=== PATIENT | female | born 1950 | race Caucasian/White ===

== ENCOUNTER 2020-10-06 12:21 | Inpatient (IN) | payer BC ==
[2020-10-06] MEDS ORDERED: Ondansetron 4 MG/2 ML SDV IVPUSH ONE (12:50)
--- NOTE | 2020-10-06 12:55 | EDM.PDOC ---
ED HPI GENERAL MEDICAL PROBLEM - General Chief Complaint: General Stated Complaint: TIRED/WEAK Time Seen by Provider: 10/06/20 12:35 Source of Information: Reports: Patient, Family (son) History Limitations: Reports: No Limitations - History of Present Illness INITIAL COMMENTS - FREE TEXT/NARRATIVE: 69year-old female presents to the ED in the accompaniment of family member. S he is so weak she required assistance from her vehicle by nursing staff. She presents due to generalized weakness and inability to eat for several days. She states she has a primary right sided lung cancer that was diagnosed in 2017 treated with radiation and chemotherapy. Subsequently she has developed metastatic disease to bones and brain and likely liver. She has not been able to eat anything for the last 3 days. Nothing tastes good. Occasional bouts of nausea without vomiting. Stools are still formed and somewhat difficult to pass as they are quite hard. She estimates she is lost 45 pounds of weight in the last 3 months. She has tried immunotherapy with no improvement in symptoms. She did have recent imaging with MRI of her brain revealing tumors bilaterally. She has a scheduled appointment to see Dr. Garcia her oncologist tomorrow in [place] but was just going to simply tell him that she does not wish to pursue any active chemotherapy. She essentially needs to be placed in hospice care. She states she is so weak she cannot walk with the aid of her walker today. Onset: Gradual, Other (Primary diagnosis of right-sided lung cancer in 2017. More gradual loss of function with weight loss over the last 3 months.) Duration: Chronic Location: Reports: Chest (Primary right sided lung cancer with known metastatic disease to bone and brain and likely liver. Complete loss of appetite), Generalized (Her generalized weakness in it unable to walk even with the aid of her walker today.) Quality: Reports: Other Severity: Severe (Generalized weakness and loss of appetite) Improves with: Reports: None Worsens with: Reports: None Context: Reports: Other (Primary cancer diagnosed in 2017 in the right lung with palliative radiotherapy and chemotherapy. Subsequently has developed metastatic disease to brain which has been radiated and more recently diffuse metastatic disease to bones and liver). Denies: Activity, Exercise, Lifting, Sick Contact, Trauma Associated Symptoms: Reports: Cough, Loss of Appetite, Malaise (Rare cough rare sputum production no hemoptysis), Nausea/Vomiting, Shortness of Breath, Weakness (Neurolysed weakness to the point she is unable to walk even with the aid of her walker today. She cannot get dressed on her own.), Other (Mild constipation.). Denies: Confusion, Chest Pain, Diaphoresis, Fever/Chills, Headaches (Pleat loss of appetite. Has not eaten anything in 3 days.), Rash, Seizure (Occasional nausea but no vomiting), Syncope Treatments SENIOR SUSTAINABILITY CONSULTANT: Reports: Acetaminophen (Rare use of Tylenol) - Related Data Allergies Allergy/AdvReac Type Severity Reaction Status Date / Time No Known Allergies Allergy Verified 10/06/20 12:35 Home Meds: Home Meds Non-Formulary Medication [NF Drug] 0 each .XX ASDIRECTED 10/06/20 [History] Past Medical History HEENT History: Reports: Impaired Vision Respiratory History: Reports: SOB NURSERY MANAGER History: Reports: Endometriosis, Polycystic Ovaries Musculoskeletal History: Reports: Osteoarthritis, Other (See Below) (Back pain felt to be due to metastatic bone disease) Neurological History: Reports: Other (See Below) (Has known multiple metastatic brain lesions from primary lung cancer. No history of a seizure event) Oncologic (Cancer) History: Reports: Brain (Metastatic disease to her brain diagnosed within the last 9 months treated with radiation.), Lung (Primary cancer was diagnosed in 2017 in the right lung. She is this has been treated with radiation and chemotherapy and immunotherapy. Last treatment was 3 weeks ago), Metastatic (Imaging reveals advanced metastatic disease to brain and bone and liver.) Other Oncologic History: right lung cancer diagnosed in 2017 that has spread to brain and spine - Past Surgical History Respiratory Surgical History: Reports: Lung Biopsies GI Surgical History: Reports: Colonoscopy Social & Family History - Tobacco Use Tobacco Use Status *Q: Former Tobacco User Used Tobacco, but Quit: Yes Month/Year Tobacco Last Used: 03/1998 - Caffeine Use Caffeine Use: Reports: None - Recreational Drug Use Recreational Drug Use: No - Living Situation & Occupation Occupation: Disabled ED ROS GENERAL - Review of Systems Review Of Systems: See Below Constitutional: Reports: Malaise, Weakness, Fatigue, Decreased Appetite (Complete loss of appetite with very little to eat or drink in the last 3 days.), Weight Loss (A 5 pound weight loss in the last 3 months). Denies: Fever, Chills HEENT: Reports: Glasses Respiratory: Reports: Shortness of Breath, Wheezing, Cough (Occasional cough). Denies: Pleuritic Chest Pain (Occasional wheezing), Hemoptysis ( with rare sputum production) Cardiovascular: Reports: Blood Pressure Problem, Dyspnea on Exertion (Chronic edema both lower extremities), Edema, Lightheadedness (Often gets lightheaded dizzy when she stands from a seated or lying down position). Denies: Chest Pain, Claudication (Usually on the low side), Orthopnea, Palpitations, PND Endocrine: Reports: Fatigue GI/Abdominal: Reports: Constipation (Stools are hard and difficult to pass), Decreased Appetite, Nausea (Occasional nausea). Denies: Hematochezia, Melena : Reports: Other (Urine is dark and dereck in color.) Musculoskeletal: Reports: Neck Pain, Back Pain Skin: Reports: Bruising (Loses fairly easily.) Neurological: Reports: Dizziness, Difficulty Walking (Uses a walker but today not able to walk with even with her walker.), Weakness. Denies: Confusion, Headache, Numbness, Syncope, Tingling, Tremors, Trouble Speaking ( 2-week), Change in Speech Psychiatric: Reports: Depression (Due to chronic illness.) Hematologic/Lymphatic: Reports: Anemia Immunologic: Reports: No Symptoms ED EXAM, GENERAL - Physical Exam Exam: See Below Exam Limited By: No Limitations General Appearance: Alert, WD/WN, Mild Distress, Other (Patient is obviously quite ill. Strong smell of ketones on her breath. Temperature is 36.4 heart rate 112 and sinus at the bedside. Respiratory rate of 18 with O2 sats of 91% room air hands are slightly cool to touch. Blood pressure 107/67.) Eye Exam: Bilateral Eye: Normal Inspection (Mild blepharal pallor bilaterally no scleral icterus), PERRL Throat/Mouth: Normal Inspection, Normal Oropharynx, Other Head: Atraumatic (Tongue is dry and coated.), Normocephalic Neck: Normal Inspection, Supple, Limited Range of Motion, Tender Lateral. No: Full Range of Motion, Carotid Bruit, Lymphadenopathy (L), Lymphadenopathy (R) Respiratory/Chest: No Respiratory Distress, No Accessory Muscle Use, Decreased Breath Sounds (Decreased air entry the posterior right lung field without adventitial sounds. Question whether may be a small pleural effusion with dullness to percussion in this area.), Other (Port-A-Cath left upper anterior chest) Cardiovascular: Normal Peripheral Pulses, No Gallop (Sinus tachycardia at the bedside 112/min.), No Murmur, No Rub, Tachycardia. No: No Edema Peripheral Pulses: 1+: Posterior Tibial (L) (Called to feel pulses in her feet due to edema.), Posterior Tibial (R), Dorsalis Pedis (L), Dorsalis Pedis (R), 2+: Carotid (L), Carotid (R) GI/Abdominal: Normal Bowel Sounds, Soft, Non-Tender, No Organomegaly, No Mass, Pelvis Stable, Other (Is in the right upper quadrant of the abdomen in the distribution of the liver without obvious hepatomegaly. No surgical scars) Back Exam: Normal Inspection. No: CVA Tenderness (L), CVA Tenderness (R) Extremities: Pedal Edema (2+ pitting edema up to mid tib-fib bilaterally.), Other (No significant osteoarthritic changes in knees and hips.) Neurological: Alert, Oriented, CN II-XII Intact, Normal Cognition. No: Normal Gait (And assessed but we had to help her out of the car to get into a wheelchair to get into the ED. Normally walks with the aid of a walker but is unable to do so due to weakness.) Skin Exam: Warm, Dry, Intact, No Rash (Mild pallor), Pallor #1 Interpretation EKG Date: 10/06/20 Time: 13:02 Rhythm: Other (Sinus tachycardia) Rate (Beats/Min): 103 [place]: LAD-Left [place] Deviation (-44 degrees) P-Wave: Present QRS: Other (There is Q-wave in V1 and poor R wave progression V2 V3 consider old anteroseptal myocardial infarction. There is Q-wave in lead III and aVF compared with old inferior wall myocardial infarction. There is decreased voltage in both the limb and precordial leads.) ST-T: Other (T wave flattening in aVL nonspecific finding) QT: Normal EKG Interpretation Comments: Abnormal ECG Course - Vital Signs Last Recorded V/S: Last Vital Signs Temp 36.4 C 10/06/20 12:30 Pulse 108 H 10/06/20 12:30 Resp 18 10/06/20 12:30 BP 107/67 10/06/20 12:30 Pulse Ox 91 L 10/06/20 12:30 - Orders/Labs/Meds Orders: Active Orders 24 hr Category Date Time Status Patient Status [ADT] Routine ADT 10/06/20 13:58 Active EKG Documentation Completion [RC] STAT Care 10/06/20 12:52 Active Implanted Port Access [RC] Q12HR Care 10/06/20 12:50 Active Oxygen Therapy [RC] PRN Care 10/06/20 13:58 Active RT Aerosol Therapy [RC] ASDIRECTED Care 10/06/20 13:58 Active Up With Assistance [RC] ASDIRECTED Care 10/06/20 13:58 Active Vital Signs [RC] Q4H Care 10/06/20 13:58 Active Consult to Hospice [CONS] Routine Cons 10/06/20 13:58 Ordered Heart Healthy Diet [DIET] Diet 10/06/20 Lunch Active CORONAVIRUS COVID-19 ALEXANDRA [MOLEC] Stat Lab 10/06/20 13:55 Received SEDIMENTATION RATE AUTO [HEME] Stat Lab 10/06/20 12:55 Received URINALYSIS W/MICROSCOPIC [UA W/MICROSCOPIC] [URIN] Stat Lab 10/06/20 12:53 Ordered Acetaminophen [TylenoL] Med 10/06/20 13:58 Active 650 mg PO Q4H PRN Albuterol/Ipratropium [DuoNeb 3.0-0.5 MG/3 ML] Med 10/06/20 13:58 Active 3 ml NEB Q4H PRN Docusate Sodium [Colace] Med 10/06/20 13:58 Active 100 mg PO BID PRN Enoxaparin [Lovenox] Med 10/07/20 09:00 Active 40 mg SUBCUT DAILY Lactated Ringers [Ringers, Lactated] 1,000 ml Med 10/06/20 14:00 Active IV ASDIRECTED Ondansetron [Zofran ODT] Med 10/06/20 13:58 Active 4 mg PO Q4H PRN Temazepam [Restoril] Med 10/06/20 21:00 Active 15 mg PO BEDTIME PRN oxyCODONE Med 10/06/20 13:58 Active 5 mg PO Q4H PRN Resuscitation Status Routine Resus Stat 10/06/20 13:58 Ordered Medication Orders Acetaminophen (Acetaminophen 325 Mg Tab) 650 mg PO Q4H PRN PRN Reason: Pain (Mild 1-3)/fever Albuterol/Ipratropium (Albuterol/Ipratropium 3.0-0.5 Mg/3 Ml Neb Soln) 3 ml NEB Q4H PRN PRN Reason: Shortness Of Breath/wheezing Docusate Sodium (Docusate Sodium 100 Mg Cap) 100 mg PO BID PRN PRN Reason: Constipation Enoxaparin Sodium (Enoxaparin 40 Mg/0.4 Ml Syringe) 40 mg SUBCUT DAILY HERLINDA Lactated Ringer's (Ringers, Lactated) 1,000 mls @ 100 mls/hr IV ASDIRECTED HERLINDA Ondansetron HCl (Ondansetron 4 Mg Tab.Dis) 4 mg PO Q4H PRN PRN Reason: nausea, able to take PO Oxycodone HCl (Oxycodone 5 Mg Tab) 5 mg PO Q4H PRN PRN Reason: Pain (moderate 4-6) Temazepam (Temazepam 15 Mg Cap) 15 mg PO BEDTIME PRN PRN Reason: Sleep Labs: Laboratory Tests 10/06/20 10/06/20 10/06/20 Range/Units 12:55 12:55 12:55 WBC 11.60 H (3.98-10.04) K/mm3 RBC 3.73 L (3.98-5.22) M/mm3 Hgb 11.9 (11.2-15.7) gm/dl Hct 37.6 (34.1-44.9) % MCV 100.8 H (79.4-94.8) fl MCH 31.9 (25.6-32.2) pg MCHC 31.6 L (32.2-35.5) g/dl RDW Std Deviation 64.2 H (36.4-46.3) fL Plt Count 239 (182-369) K/mm3 MPV 10.2 (9.4-12.3) fl Neut % (Auto) 70.7 (34.0-71.1) % Lymph % (Auto) 23.8 (19.3-51.7) % [place] % (Auto) 4.9 (4.7-12.5) % Eos % (Auto) 0 L (0.7-5.8) Baso % (Auto) 0.3 (0.1-1.2) % Neut # (Auto) 8.20 H (1.56-6.13) K/mm3 Lymph # (Auto) 2.76 (1.18-3.74) K/mm3 [place] # (Auto) 0.57 H (0.24-0.36) K/mm3 Eos # (Auto) 0.00 L (0.04-0.36) K/mm3 Baso # (Auto) 0.04 (0.01-0.08) K/mm3 PT 16.0 H (9.7-12.0) SECONDS INR 1.51 APTT 32.0 H (21.7-31.4) SECONDS Sodium 141 (136-145) mEq/L Potassium 3.6 (3.5-5.1) mEq/L Chloride 103 (98-107) mEq/L Carbon Dioxide 22 (21-32) mEq/L Anion Gap 19.6 H (5-15) BUN 12 (7-18) mg/dL Creatinine 0.6 (0.55-1.02) mg/dL Est Cr Clr Drug Dosing 80.75 mL/min Estimated GFR (MDRD) > 60 (>60) mL/min BUN/Creatinine Ratio 20.0 H (14-18) Glucose 87 (70-99) mg/dL Lactic Acid (0.4-2.0) mmol/L Calcium 8.4 L (8.5-10.1) mg/dL Magnesium 1.7 L (1.8-2.4) mg/dL Total Bilirubin 0.7 (0.2-1.0) mg/dL GGT 41 (5-55) U/L AST 21 (15-37) U/L ALT 12 L (14-59) U/L Alkaline Phosphatase 103 (46-116) U/L Troponin I (0.00-0.056) ng/mL C-Reactive Protein 0.6 (<1.0) mg/dL NT-Pro-B Natriuret Pep (0-125) pg/mL Total Protein 5.5 L (6.4-8.2) g/dl Albumin 2.3 L (3.4-5.0) g/dl Globulin 3.2 gm/dL Albumin/Globulin Ratio 0.7 L (1-2) Lipase 79 (73-393) U/L Ketones (0.0-0.3) mM 10/06/20 10/06/20 10/06/20 Range/Units 12:55 12:55 12:55 WBC (3.98-10.04) K/mm3 RBC (3.98-5.22) M/mm3 Hgb (11.2-15.7) gm/dl Hct (34.1-44.9) % MCV (79.4-94.8) fl MCH (25.6-32.2) pg MCHC (32.2-35.5) g/dl RDW Std Deviation (36.4-46.3) fL Plt Count (182-369) K/mm3 MPV (9.4-12.3) fl Neut % (Auto) (34.0-71.1) % Lymph % (Auto) (19.3-51.7) % [place] % (Auto) (4.7-12.5) % Eos % (Auto) (0.7-5.8) Baso % (Auto) (0.1-1.2) % Neut # (Auto) (1.56-6.13) K/mm3 Lymph # (Auto) (1.18-3.74) K/mm3 [place] # (Auto) (0.24-0.36) K/mm3 Eos # (Auto) (0.04-0.36) K/mm3 Baso # (Auto) (0.01-0.08) K/mm3 PT (9.7-12.0) SECONDS INR APTT (21.7-31.4) SECONDS Sodium (136-145) mEq/L Potassium (3.5-5.1) mEq/L Chloride (98-107) mEq/L Carbon Dioxide (21-32) mEq/L Anion Gap (5-15) BUN (7-18) mg/dL Creatinine (0.55-1.02) mg/dL Est Cr Clr Drug Dosing mL/min Estimated GFR (MDRD) (>60) mL/min BUN/Creatinine Ratio (14-18) Glucose (70-99) mg/dL Lactic Acid 0.8 (0.4-2.0) mmol/L Calcium (8.5-10.1) mg/dL Magnesium (1.8-2.4) mg/dL Total Bilirubin (0.2-1.0) mg/dL GGT (5-55) U/L AST (15-37) U/L ALT (14-59) U/L Alkaline Phosphatase (46-116) U/L Troponin I (0.00-0.056) ng/mL C-Reactive Protein (<1.0) mg/dL NT-Pro-B Natriuret Pep 117 (0-125) pg/mL Total Protein (6.4-8.2) g/dl Albumin (3.4-5.0) g/dl Globulin gm/dL Albumin/Globulin Ratio (1-2) Lipase (73-393) U/L Ketones 5.5 (0.0-0.3) mM // Range/Units 12:55 WBC (3.98-10.04) K/mm3 RBC (3.98-5.22) M/mm3 Hgb (11.2-15.7) gm/dl Hct (34.1-44.9) % MCV (79.4-94.8) fl MCH (25.6-32.2) pg MCHC (32.2-35.5) g/dl RDW Std Deviation (36.4-46.3) fL Plt Count (182-369) K/mm3 MPV (9.4-12.3) fl Neut % (Auto) (34.0-71.1) % Lymph % (Auto) (19.3-51.7) % [place] % (Auto) (4.7-12.5) % Eos % (Auto) (0.7-5.8) Baso % (Auto) (0.1-1.2) % Neut # (Auto) (1.56-6.13) K/mm3 Lymph # (Auto) (1.18-3.74) K/mm3 [place] # (Auto) (0.24-0.36) K/mm3 Eos # (Auto) (0.04-0.36) K/mm3 Baso # (Auto) (0.01-0.08) K/mm3 PT (9.7-12.0) SECONDS INR APTT (21.7-31.4) SECONDS Sodium (136-145) mEq/L Potassium (3.5-5.1) mEq/L Chloride (98-107) mEq/L Carbon Dioxide (21-32) mEq/L Anion Gap (5-15) BUN (7-18) mg/dL Creatinine (0.55-1.02) mg/dL Est Cr Clr Drug Dosing mL/min Estimated GFR (MDRD) (>60) mL/min BUN/Creatinine Ratio (14-18) Glucose (70-99) mg/dL Lactic Acid (0.4-2.0) mmol/L Calcium (8.5-10.1) mg/dL Magnesium (1.8-2.4) mg/dL Total Bilirubin (0.2-1.0) mg/dL GGT (5-55) U/L AST (15-37) U/L ALT (14-59) U/L Alkaline Phosphatase (46-116) U/L Troponin I < 0.017 (0.00-0.056) ng/mL C-Reactive Protein (<1.0) mg/dL NT-Pro-B Natriuret Pep (0-125) pg/mL Total Protein (6.4-8.2) g/dl Albumin (3.4-5.0) g/dl Globulin gm/dL Albumin/Globulin Ratio (1-2) Lipase (73-393) U/L Ketones (0.0-0.3) mM Meds: Medications Generic Name Dose Route Start Last Admin Trade Name Freq PRN Reason Stop Dose Admin Acetaminophen 650 mg 10/06/20 13:58 Acetaminophen 325 Mg Tab PO Q4H PRN Pain (Mild 1-3)/fever Albuterol/Ipratropium 3 ml 10/06/20 13:58 Albuterol/Ipratropium 3.0-0.5 Mg/3 Ml Neb Soln NEB Q4H PRN Shortness Of Breath/wheezing Docusate Sodium 100 mg 10/06/20 13:58 Docusate Sodium 100 Mg Cap PO BID PRN Constipation Enoxaparin Sodium 40 mg 10/07/20 09:00 Enoxaparin 40 Mg/0.4 Ml Syringe SUBCUT DAILY [facility] Lactated Ringer's 1,000 mls @ 100 mls/hr 10/06/20 14:00 Ringers, Lactated IV ASDIRECTED HERLINDA Ondansetron HCl 4 mg 10/06/20 13:58 Ondansetron 4 Mg Tab.Dis PO Q4H PRN nausea, able to take PO Oxycodone HCl 5 mg 10/06/20 13:58 Oxycodone 5 Mg Tab PO Q4H PRN Pain (moderate 4-6) Temazepam 15 mg 10/06/20 21:00 Temazepam 15 Mg Cap PO BEDTIME PRN Sleep Discontinued Medications Generic Name Dose Route Start Last Admin Trade Name Freq PRN Reason Stop Dose Admin Dextrose/Sodium Chloride 1,000 mls @ 999 mls/hr 10/06/20 13:00 10/06/20 13:17 Dextrose 5%-Normal Saline IV 999 mls/hr ASDIRECTED HERLINDA Administration Ondansetron HCl 4 mg 10/06/20 12:50 10/06/20 13:17 Ondansetron 4 Mg/2 Ml Sdv IVPUSH 10/06/20 12:51 4 mg ONETIME ONE Administration - Radiology Interpretation Free Text/Narrative:: 69-year-old female presents to the ED requiring assist from her vehicle by nursing staff and her son. She has a primary history of lung cancer on the right side diagnosed in 2017 treated with radiation and chemotherapy. Did okay for period of time but recently identified to have metastatic disease to her brain treated with radiotherapy and now diffuse bony metastatic disease indicating chemotherapy failure and immunotherapy failure. She is also had primary radiation to her right lung. She states nothing tastes good unable to eat or drink hardly anything in the last 3 days. Reports a 45 pound weight loss in the last 3 months. Usually can get along walking with her walker but has been unable to do so for the last few days. She states she is so weak she cannot dress herself. On exam breath smells strongly of ketones. She is alert oriented and answers all questions appropriately. Exam reveals mildly decreased air entry at posterior right lung field. Mild dependent edema bilaterally. Plan routine labs including lactic acid and serum ketones to be obtained. She is clinically volume depleted. IV will be D5 normal saline at open. She does have a Port-A-Cath upper anterior left chest. It appears that she will require admission to the hospital. She will have to consider hospice/palliative care. - Re-Assessments/Exams Free Text/Narrative Re-Assessment/Exam: 10/06/20 13:20 ECG is suggestive of an old anteroseptal and inferior wall myocardial infarction. For this reason a serum troponin will be ordered. 10/06/20 13:45 chest x-ray done portably reveals patchy increased density within the right lung base. Questionable pleural effusion is seen with blunting of the right costophrenic angle. Lungs otherwise are grossly clear. Heart size and mediastinum are normal. Degenerative change appears to be present within the left shoulder. Left-sided infusion port is seen. Scoliosis of the thoracic spine noted. 10/06/20 13:47 White count is mildly elevated at 11.60. The differential r eveals 71% neutrophils on the auto differential. Hemoglobin is slightly low at 11.9 with hematocrit of 37.6. MCV is 100.8. Platelet count is normal at 239,000. Serum sodium is 141 with a potassium of 3.6. Chloride 103 with a bicarb of 22. Anion gap is elevated at 19.6. BUN is 12 with a creatinine of 0.6 and a GFR greater than 60. Glucose is 87. Calcium is 8.4. Magnesium slightly low at 1.7. Total bilirubin is 0.7. GGT is 41. Transaminases are normal as is the alkaline phosphatase. C-reactive protein is 0.6. BNP is 117. Total protein slightly low at 5.5 with a low albumin fraction of 2.3. Serum lipase is normal at 79. I have discussed the case with on-call hospitalist Dr. Praful Everett and he will see the patient in the emergency room. 10/06/20 14:16 PT is 16.0 with an INR elevated at 1.51. PTT is pending. This indicates that she is auto anticoagulated likely due to metastatic disease to her liver. Serum ketones are not yet available 10/06/20 14:55 Lactic acid is 0.8. Serum ketones are markedly elevated at 5.5. C-reactive protein is 0.6. Patient will be started on second liter of IV replacement therapy IV Ringer's lactate Departure - Departure Time of Disposition: 14:55 Disposition: Admitted As Inpatient 67 Condition: Poor Clinical Impression: Primary cancer of right lung metastatic to other site, Metabolic acidosis, Ketosis, Adult failure to thrive syndrome, Metastatic cancer to bone, Metastatic cancer to brain, Metastatic cancer to liver, Chronic pain due to malignant neoplastic disease, Dehydration - Discharge Information *PRESCRIPTION DRUG MONITORING PROGRAM REVIEWED*: Not Applicable *COPY OF PRESCRIPTION DRUG MONITORING REPORT IN PATIENT ILIANA: Not Applicable Referrals: Laureano Mace MD [Primary Care Provider] - Forms: ED Department Discharge Sepsis Event Note (ED) - Evaluation Sepsis Screening Result: No Definite Risk - Focused Exam Vital Signs: Vital Signs Temp Pulse Resp BP Pulse Ox 10/06/20 12:30 36.4 C 108 H 18 107/67 91 L - My Orders Last 24 Hours: My Active Orders 10/06/20 12:50 Implanted Port Access [RC] Q12HR 10/06/20 12:52 EKG Documentation Completion [RC] STAT 10/06/20 12:53 URINALYSIS W/MICROSCOPIC [UA W/MICROSCOPIC] [URIN] Stat 10/06/20 12:55 SEDIMENTATION RATE AUTO [HEME] Stat 10/06/20 13:55 CORONAVIRUS COVID-19 ALEXANDRA [MOLEC] Stat - Assessment/Plan Last 24 Hours: My Active Orders 10/06/20 12:50 Implanted Port Access [RC] Q12HR 10/06/20 12:52 EKG Documentation Completion [RC] STAT 10/06/20 12:53 URINALYSIS W/MICROSCOPIC [UA W/MICROSCOPIC] [URIN] Stat 10/06/20 12:55 SEDIMENTATION RATE AUTO [HEME] Stat 10/06/20 13:55 CORONAVIRUS COVID-19 ALEXANDRA [MOLEC] Stat
[2020-10-06] MEDS ORDERED: Dextrose 5%-0.9% NaCl 1,000 ML IV SCH (13:00)
--- NOTE | 2020-10-06 13:41 | CR ---
Chest: Portable view of the chest was obtained. Comparison: No previous study is available. Patchy increased density within the right lung base is seen. Questionable pleural effusion is seen with blunting of the right lateral costophrenic angle. Lungs otherwise are grossly clear. Heart size and mediastinum are normal. Degenerative change appears to be present within the left shoulder. Left-sided infusion port is seen. Scoliosis is noted within the spine. Impression: 1. Findings within the right base. Uncertain if this represents changes from previous carcinoma or whether the findings could represent an area of pneumonia with pleural effusion. 2. Other findings as noted above which appear to be chronic. Diagnostic code #3
[2020-10-06] MEDS ORDERED: Albuterol/Ipratropium 3.0-0.5 MG/3 ML Neb Soln NEB PRN (13:58)
[2020-10-06] MEDS ORDERED: oxyCODONE 5 MG Tab PO PRN (13:58)
[2020-10-06] MEDS ORDERED: Acetaminophen 325 MG Tab PO PRN (13:58)
[2020-10-06] MEDS ORDERED: Ondansetron 4 MG Tab.DIS PO PRN (13:58)
[2020-10-06] MEDS ORDERED: Docusate Sodium 100 MG Cap PO PRN (13:58)
--- NOTE | 2020-10-06 14:07 | PCM.HP.2 ---
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 The patient is not continuing chemotherapy Source of Information: Patient, Family History Limitations: Reports: No Limitations - History of Present Illness Initial Comments - Free Text/Narative: The patient is a 69-year-old lady who had presented to the emergency department essentially unable to care for herself. She has not eaten or drank anything in 3 days. She does have an underlying history of lung cancer that has metastasized to her brain, spine and liver. The patient has reported that nothing tastes good for her. The patient has a chemotherapy appointment tomorrow that she canceled as she does not want any further chemotherapy or radiation treatment. The patient also says that she has been too weak to use her walker at home. Reportedly the patient's brain tumors have grown. The patient has stopped taking all of her medications. The patient reports that she has mild back pain Onset of Symptoms: Reports: Gradual Location: Reports: Back Quality: Reports: Ache Severity: Mild Improves with: Reports: None Worsens with: Reports: None Context: Reports: Other (Poor oral intake of food and fluids) Associated Symptoms: Reports: Loss of Appetite - Related Data Allergies/Adverse Reactions: Allergies Allergy/AdvReac Type Severity Reaction Status Date / Time No Known Allergies Allergy Verified 10/06/20 12:35 Home Medications: Home Meds Non-Formulary Medication [NF Drug] 0 each .XX ASDIRECTED 10/06/20 [History] Past Medical History HEENT History: Reports: Impaired Vision Cardiovascular History: Reports: None Respiratory History: Reports: SOB Gastrointestinal History: Reports: None 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 No history of a seizure event) Endocrine/Metabolic History: Reports: None Hematologic History: Reports: None Immunologic History: Reports: None Oncologic (Cancer) History: Reports: Brain (Metastatic disease to her brain diagnosed within the last 9 months treated with radiation.), Liver, Lung (Primary cancer was diagnosed in 2017 in the right lung. She is this has been treated with radiation and chemotherapy and immunotherapy. Last treatment was 3 weeks ago), Metastatic (Imaging reveals advanced metastatic disease to brain and bone and liver.) Other Oncologic History: right lung cancer diagnosed in 2017 that has spread to brain and spine - Past Surgical History Respiratory Surgical History: Reports: Lung Biopsies GI Surgical History: Reports: Colonoscopy Social & Family History - Tobacco Use Tobacco Use Status *Q: Former Tobacco User Used Tobacco, but Quit: Yes Month/Year Tobacco Last Used: 03/1998 - Caffeine Use Caffeine Use: Reports: None - Recreational Drug Use Recreational Drug Use: No - Living Situation & Occupation Living situation: Reports: , with Spouse Occupation: Disabled H&P Review of Systems - Review of Systems: Review Of Systems: See Below General: Reports: Weakness, Fatigue, Decreased Appetite, Weight Loss HEENT: Reports: Other (Dryness) Pulmonary: Reports: Shortness of Breath Cardiovascular: Reports: No Symptoms Gastrointestinal: Reports: Anorexia Genitourinary: Reports: No Symptoms Musculoskeletal: Reports: Back Pain (Metastatic cancer to the spine) Skin: Reports: Dryness Psychiatric: Reports: No Symptoms Neurological: Reports: No Symptoms Hematologic/Lymphatic: Reports: No Symptoms Immunologic: Reports: No Symptoms Exam - Exam Exam: See Below - Vital Signs Vital Signs: Last Vital Signs Temp 36.4 C 10/06/20 12:30 Pulse 108 H 10/06/20 12:30 Resp 18 10/06/20 12:30 BP 107/67 10/06/20 12:30 Pulse Ox 91 L 10/06/20 12:30 Weight: 69.853 kg - Exam Quality Assessment: No: Supplemental Oxygen, DVT Prophylaxis General: Alert, Oriented, Cooperative HEENT: Conjunctiva Clear, EACs Clear, PERRLA. No: Mucosa Moist & [place] (Very dry, poor dentition) Neck: Supple, Trachea Midline. No: Lymphadenopathy Lungs: Decreased Breath Sounds, Rales (Widely scattered) Cardiovascular: Regular Rate, Regular Rhythm, Normal S1, Normal S2 GI/Abdominal Exam: Normal Bowel Sounds, Soft, Non-Tender, No Distention (Female) Exam: Deferred Rectal (Female) Exam: Deferred Back Exam: Normal Inspection, Full Range of Motion Extremities: Normal Inspection, Normal Range of Motion, Pedal Edema (+1) Skin: Warm, Dry, Intact Neurological: Cranial Nerves Intact, Normal Speech Psychiatric: Alert, Normal Affect, Normal Mood - Patient Data Lab Results Last 24 hrs: Laboratory Results - last 24 hr 10/06/20 10/06/20 10/06/20 Range/Units 12:55 12:55 12:55 WBC 11.60 H (3.98-10.04) K/mm3 RBC 3.73 L (3.98-5.22) M/mm3 Hgb 11.9 (11.2-15.7) gm/dl Hct 37.6 (34.1-44.9) % MCV 100.8 H (79.4-94.8) fl MCH 31.9 (25.6-32.2) pg MCHC 31.6 L (32.2-35.5) g/dl RDW Std Deviation 64.2 H (36.4-46.3) fL Plt Count 239 (182-369) K/mm3 MPV 10.2 (9.4-12.3) fl Neut % (Auto) 70.7 (34.0-71.1) % Lymph % (Auto) 23.8 (19.3-51.7) % [place] % (Auto) 4.9 (4.7-12.5) % Eos % (Auto) 0 L (0.7-5.8) Baso % (Auto) 0.3 (0.1-1.2) % Neut # (Auto) 8.20 H (1.56-6.13) K/mm3 Lymph # (Auto) 2.76 (1.18-3.74) K/mm3 [place] # (Auto) 0.57 H (0.24-0.36) K/mm3 Eos # (Auto) 0.00 L (0.04-0.36) K/mm3 Baso # (Auto) 0.04 (0.01-0.08) K/mm3 PT 16.0 H (9.7-12.0) SECONDS INR 1.51 Sodium 141 (136-145) mEq/L Potassium 3.6 (3.5-5.1) mEq/L Chloride 103 (98-107) mEq/L Carbon Dioxide 22 (21-32) mEq/L Anion Gap 19.6 H (5-15) BUN 12 (7-18) mg/dL Creatinine 0.6 (0.55-1.02) mg/dL Est Cr Clr Drug Dosing 80.75 mL/min Estimated GFR (MDRD) > 60 (>60) mL/min BUN/Creatinine Ratio 20.0 H (14-18) Glucose 87 (70-99) mg/dL Calcium 8.4 L (8.5-10.1) mg/dL Magnesium 1.7 L (1.8-2.4) mg/dL Total Bilirubin 0.7 (0.2-1.0) mg/dL GGT 41 (5-55) U/L AST 21 (15-37) U/L ALT 12 L (14-59) U/L Alkaline Phosphatase 103 (46-116) U/L C-Reactive Protein 0.6 (<1.0) mg/dL NT-Pro-B Natriuret Pep (0-125) pg/mL Total Protein 5.5 L (6.4-8.2) g/dl Albumin 2.3 L (3.4-5.0) g/dl Globulin 3.2 gm/dL Albumin/Globulin Ratio 0.7 L (1-2) Lipase 79 (73-393) U/L 10/06/20 Range/Units 12:55 WBC (3.98-10.04) K/mm3 RBC (3.98-5.22) M/mm3 Hgb (11.2-15.7) gm/dl Hct (34.1-44.9) % MCV (79.4-94.8) fl MCH (25.6-32.2) pg MCHC (32.2-35.5) g/dl RDW Std Deviation (36.4-46.3) fL Plt Count (182-369) K/mm3 MPV (9.4-12.3) fl Neut % (Auto) (34.0-71.1) % Lymph % (Auto) (19.3-51.7) % [place] % (Auto) (4.7-12.5) % Eos % (Auto) (0.7-5.8) Baso % (Auto) (0.1-1.2) % Neut # (Auto) (1.56-6.13) K/mm3 Lymph # (Auto) (1.18-3.74) K/mm3 [place] # (Auto) (0.24-0.36) K/mm3 Eos # (Auto) (0.04-0.36) K/mm3 Baso # (Auto) (0.01-0.08) K/mm3 PT (9.7-12.0) SECONDS INR Sodium (136-145) mEq/L Potassium (3.5-5.1) mEq/L Chloride (98-107) mEq/L Carbon Dioxide (21-32) mEq/L Anion Gap (5-15) BUN (7-18) mg/dL Creatinine (0.55-1.02) mg/dL Est Cr Clr Drug Dosing mL/min Estimated GFR (MDRD) (>60) mL/min BUN/Creatinine Ratio (14-18) Glucose (70-99) mg/dL Calcium (8.5-10.1) mg/dL Magnesium (1.8-2.4) mg/dL Total Bilirubin (0.2-1.0) mg/dL GGT (5-55) U/L AST (15-37) U/L ALT (14-59) U/L Alkaline Phosphatase (46-116) U/L C-Reactive Protein (<1.0) mg/dL NT-Pro-B Natriuret Pep 117 (0-125) pg/mL Total Protein (6.4-8.2) g/dl Albumin (3.4-5.0) g/dl Globulin gm/dL Albumin/Globulin Ratio (1-2) Lipase (73-393) U/L Result Diagrams: 10/06/20 12:55 10/06/20 12:55 Sepsis Event Note - Evaluation Sepsis Screening Result: No Definite Risk - Focused Exam Vital Signs: Vital Signs Temp Pulse Resp BP Pulse Ox 10/06/20 12:30 36.4 C 108 H 18 107/67 91 L - Problem List (1) Adult failure to thrive syndrome SNOMED Code(s): 486090572 ICD Code: R62.7 - ADULT FAILURE TO THRIVE Status: Acute Priority: High Current Visit: Yes (2) Metastatic cancer to bone Status: Chronic Priority: High Current Visit: Yes (3) Metastatic cancer to brain Status: Chronic Priority: High Current Visit: Yes (4) Metastatic cancer to liver Status: Chronic Priority: High Current Visit: Yes (5) Chronic pain due to malignant neoplastic disease SNOMED Code(s): 792102870 ICD Code: G89.3 - NEOPLASM RELATED PAIN (ACUTE) (CHRONIC) Status: Acute Priority: High Current Visit: Yes (6) Dehydration SNOMED Code(s): 14400907 ICD Code: E86.0 - DEHYDRATION Status: Acute Priority: High Current Visit: Yes (7) Anorexia SNOMED Code(s): 49246314 ICD Code: R63.0 - ANOREXIA Status: Acute Priority: High Current Visit: Yes Problem List Initiated/Reviewed/Updated: Yes Orders Last 24hrs: Active Orders 24 hr Category Date Time Status Patient Status [ADT] Routine ADT 10/06/20 13:58 Ordered EKG Documentation Completion [RC] STAT Care 10/06/20 12:52 Active Implanted Port Access [RC] Q12HR Care 10/06/20 12:50 Active Oxygen Therapy [RC] PRN Care 10/06/20 13:58 Ordered RT Aerosol Therapy [RC] ASDIRECTED Care 10/06/20 13:58 Ordered Up With Assistance [RC] ASDIRECTED Care 10/06/20 13:58 Ordered Vital Signs [RC] Q4H Care 10/06/20 13:58 Ordered Consult to Hospice [CONS] Routine Cons 10/06/20 13:58 Ordered Heart Healthy Diet [DIET] Diet 10/06/20 Lunch Ordered INR,PT,PROTHROMBIN TIME [COAG] Stat Lab 10/06/20 12:55 Results KETONES,BLOOD [CHEM] Stat Lab 10/06/20 12:55 Received LACTIC ACID [CHEM] Stat Lab 10/06/20 12:55 Received PTT,PARTIAL THROMBOPLSTIN TIME [COAG] Stat Lab 10/06/20 12:55 Results SEDIMENTATION RATE AUTO [HEME] Stat Lab 10/06/20 12:55 Received TROPONIN I [CHEM] Stat Lab 10/06/20 13:20 Ordered URINALYSIS W/MICROSCOPIC [UA W/MICROSCOPIC] [URIN] Stat Lab 10/06/20 12:53 Ordered Acetaminophen [TylenoL] Med 10/06/20 13:58 Ordered 650 mg PO Q4H PRN Albuterol/Ipratropium [DuoNeb 3.0-0.5 MG/3 ML] Med 10/06/20 13:58 Ordered 3 ml NEB Q4H PRN Dextrose 5%-0.9% NaCl [Dextrose 5%-Normal Saline] 1,000 Med 10/06/20 13:00 Active ml IV ASDIRECTED Docusate Sodium [Colace] Med 10/06/20 13:58 Ordered 100 mg PO BID PRN Enoxaparin [Lovenox] Med 10/07/20 09:00 Ordered 40 mg SUBCUT DAILY Lactated Ringers @ 100 MLS/HR(1000ml Bag) Med 10/06/20 14:00 Ordered Lactated Ringers [Ringers, Lactated] 1,000 ml IV ASDIRECTED Ondansetron [Zofran ODT] Med 10/06/20 13:58 Ordered 4 mg PO Q4H PRN Temazepam [Restoril] Med 10/06/20 13:58 Ordered 15 mg PO BEDTIME PRN oxyCODONE Med 10/06/20 13:58 Ordered 5 mg PO Q4H PRN Resuscitation Status Routine Resus Stat 10/06/20 13:58 Ordered Medication Orders Dextrose/Sodium Chloride (Dextrose 5%-Normal Saline) 1,000 mls @ 999 mls/hr IV ASDIRECTED HERLINDA Last Admin: 10/06/20 13:17 Dose: 999 mls/hr Documented by: RENUKA Assessment/Plan Comment:: The patient is a 69-year-old lady who has been admitted to inpatient under DO NOT INTUBATE/DO NOT RESUSCITATE comfort measures only category. She has since really has end-stage cancer. The patient will be rehydrated as she is hypovolemic. The patient will be fluid resuscitated with the use of Ringer's lactate at 100 mL/h. The patient's pain will be controlled with the use of narcotic pain medications as necessary. I have also ordered Ativan to help with anxiety. No further testing will be ordered. Hospice has been consulted. I also had a long discussion with the patient and the patient's regarding hospice and palliative care. Overall the patient's prognosis is poor. - Mortality Measure Prognosis:: Poor
[2020-10-06] MEDS ORDERED: Dextrose 5%-Lactated Ringers 1,000 ML IV SCH (15:00)
[2020-10-06] MEDS: Lactated Ringers 1,000 ML IV SCH (15:28)
[2020-10-06] MEDS ORDERED: Temazepam 15 MG Cap PO PRN (21:00)
[2020-10-07] MEDS: Lactated Ringers 1,000 ML IV SCH ×3 (01:23→20:30)
--- NOTE | 2020-10-07 07:04 | PCM.PN ---
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 The patient is not continuing chemotherapy Subjective Update: The patient is a 69-year-old lady who was admitted yesterday secondary to dehydration and fatigue and weakness associated with chemotherapy. She has history of lung cancer which is metastatic to the bones, brain and liver. The patient says that she is doing better today. She has been trying to eat some. Her pain is being controlled. Functional Status: Reports: Pain Controlled. Denies: Tolerating Diet - Review of Systems General: Reports: Weakness, Fatigue, Malaise HEENT: Reports: No Symptoms Pulmonary: Reports: No Symptoms Cardiovascular: Reports: No Symptoms Gastrointestinal: Reports: No Symptoms Genitourinary: Reports: No Symptoms Musculoskeletal: Reports: No Symptoms Skin: Reports: No Symptoms Neurological: Reports: No Symptoms Psychiatric: Reports: No Symptoms - Patient Data Vitals - Most Recent: Last Vital Signs Temp 36.4 C 10/07/20 06:04 Pulse 92 10/07/20 06:04 Resp 16 10/07/20 06:04 BP 109/69 10/07/20 06:04 Pulse Ox 94 L 10/07/20 06:04 Weight - Most Recent: 69.944 kg I&O - Last 24 Hours: Intake & Output 10/06/20 10/07/20 10/07/20 22:59 06:59 14:59 Intake Total 1652 Balance 1652 Lab Results Last 24 Hours: Laboratory Results - last 24 hr 10/06/20 10/06/20 10/06/20 Range/Units 12:55 12:55 12:55 WBC 11.60 H (3.98-10.04) K/mm3 RBC 3.73 L (3.98-5.22) M/mm3 Hgb 11.9 (11.2-15.7) gm/dl Hct 37.6 (34.1-44.9) % MCV 100.8 H (79.4-94.8) fl MCH 31.9 (25.6-32.2) pg MCHC 31.6 L (32.2-35.5) g/dl RDW Std Deviation 64.2 H (36.4-46.3) fL Plt Count 239 (182-369) K/mm3 MPV 10.2 (9.4-12.3) fl Neut % (Auto) 70.7 (34.0-71.1) % Lymph % (Auto) 23.8 (19.3-51.7) % [place] % (Auto) 4.9 (4.7-12.5) % Eos % (Auto) 0 L (0.7-5.8) Baso % (Auto) 0.3 (0.1-1.2) % Neut # (Auto) 8.20 H (1.56-6.13) K/mm3 Lymph # (Auto) 2.76 (1.18-3.74) K/mm3 [place] # (Auto) 0.57 H (0.24-0.36) K/mm3 Eos # (Auto) 0.00 L (0.04-0.36) K/mm3 Baso # (Auto) 0.04 (0.01-0.08) K/mm3 ESR (0-20) mm/hr PT 16.0 H (9.7-12.0) SECONDS INR 1.51 APTT 32.0 H (21.7-31.4) SECONDS Sodium 141 (136-145) mEq/L Potassium 3.6 (3.5-5.1) mEq/L Chloride 103 (98-107) mEq/L Carbon Dioxide 22 (21-32) mEq/L Anion Gap 19.6 H (5-15) BUN 12 (7-18) mg/dL Creatinine 0.6 (0.55-1.02) mg/dL Est Cr Clr Drug Dosing 80.75 mL/min Estimated GFR (MDRD) > 60 (>60) mL/min BUN/Creatinine Ratio 20.0 H (14-18) Glucose 87 (70-99) mg/dL Lactic Acid (0.4-2.0) mmol/L Calcium 8.4 L (8.5-10.1) mg/dL Magnesium 1.7 L (1.8-2.4) mg/dL Total Bilirubin 0.7 (0.2-1.0) mg/dL GGT 41 (5-55) U/L AST 21 (15-37) U/L ALT 12 L (14-59) U/L Alkaline Phosphatase 103 (46-116) U/L Troponin I (0.00-0.056) ng/mL C-Reactive Protein 0.6 (<1.0) mg/dL NT-Pro-B Natriuret Pep (0-125) pg/mL Total Protein 5.5 L (6.4-8.2) g/dl Albumin 2.3 L (3.4-5.0) g/dl Globulin 3.2 gm/dL Albumin/Globulin Ratio 0.7 L (1-2) Lipase 79 (73-393) U/L Urine Color (Yellow) Urine Appearance (Clear) Urine pH (5.0-8.0) Ur Specific Martha (1.005-1.030) Urine Protein (Negative) Urine Glucose (UA) (Negative) Urine Ketones (Negative) Urine Occult Blood (Negative) Urine Nitrite (Negative) Urine Bilirubin (Negative) Urine Urobilinogen (0.2-1.0) Ur Leukocyte Esterase (Negative) Urine RBC (0-5) /hpf Urine WBC (0-5) /hpf Ur Squamous Epith Cells (0-5) /hpf Urine Bacteria (FEW) /hpf Urine Mucus (FEW) /hpf Ketones (0.0-0.3) mM SARS-CoV-2 RNA (ALEXANDRA) (NEGATIVE) 10/06/20 10/06/20 10/06/20 Range/Units 12:55 12:55 12:55 WBC (3.98-10.04) K/mm3 RBC (3.98-5.22) M/mm3 Hgb (11.2-15.7) gm/dl Hct (34.1-44.9) % MCV (79.4-94.8) fl MCH (25.6-32.2) pg MCHC (32.2-35.5) g/dl RDW Std Deviation (36.4-46.3) fL Plt Count (182-369) K/mm3 MPV (9.4-12.3) fl Neut % (Auto) (34.0-71.1) % Lymph % (Auto) (19.3-51.7) % [place] % (Auto) (4.7-12.5) % Eos % (Auto) (0.7-5.8) Baso % (Auto) (0.1-1.2) % Neut # (Auto) (1.56-6.13) K/mm3 Lymph # (Auto) (1.18-3.74) K/mm3 [place] # (Auto) (0.24-0.36) K/mm3 Eos # (Auto) (0.04-0.36) K/mm3 Baso # (Auto) (0.01-0.08) K/mm3 ESR 53 H (0-20) mm/hr PT (9.7-12.0) SECONDS INR APTT (21.7-31.4) SECONDS Sodium (136-145) mEq/L Potassium (3.5-5.1) mEq/L Chloride (98-107) mEq/L Carbon Dioxide (21-32) mEq/L Anion Gap (5-15) BUN (7-18) mg/dL Creatinine (0.55-1.02) mg/dL Est Cr Clr Drug Dosing mL/min Estimated GFR (MDRD) (>60) mL/min BUN/Creatinine Ratio (14-18) Glucose (70-99) mg/dL Lactic Acid 0.8 (0.4-2.0) mmol/L Calcium (8.5-10.1) mg/dL Magnesium (1.8-2.4) mg/dL Total Bilirubin (0.2-1.0) mg/dL GGT (5-55) U/L AST (15-37) U/L ALT (14-59) U/L Alkaline Phosphatase (46-116) U/L Troponin I (0.00-0.056) ng/mL C-Reactive Protein (<1.0) mg/dL NT-Pro-B Natriuret Pep 117 (0-125) pg/mL Total Protein (6.4-8.2) g/dl Albumin (3.4-5.0) g/dl Globulin gm/dL Albumin/Globulin Ratio (1-2) Lipase (73-393) U/L Urine Color (Yellow) Urine Appearance (Clear) Urine pH (5.0-8.0) Ur Specific Martha (1.005-1.030) Urine Protein (Negative) Urine Glucose (UA) (Negative) Urine Ketones (Negative) Urine Occult Blood (Negative) Urine Nitrite (Negative) Urine Bilirubin (Negative) Urine Urobilinogen (0.2-1.0) Ur Leukocyte Esterase (Negative) Urine RBC (0-5) /hpf Urine WBC (0-5) /hpf Ur Squamous Epith Cells (0-5) /hpf Urine Bacteria (FEW) /hpf Urine Mucus (FEW) /hpf Ketones (0.0-0.3) mM SARS-CoV-2 RNA (ALEXANDRA) (NEGATIVE) 10/06/20 10/06/20 10/06/20 Range/Units 12:55 12:55 13:55 WBC (3.98-10.04) K/mm3 RBC (3.98-5.22) M/mm3 Hgb (11.2-15.7) gm/dl Hct (34.1-44.9) % MCV (79.4-94.8) fl MCH (25.6-32.2) pg MCHC (32.2-35.5) g/dl RDW Std Deviation (36.4-46.3) fL Plt Count (182-369) K/mm3 MPV (9.4-12.3) fl Neut % (Auto) (34.0-71.1) % Lymph % (Auto) (19.3-51.7) % [place] % (Auto) (4.7-12.5) % Eos % (Auto) (0.7-5.8) Baso % (Auto) (0.1-1.2) % Neut # (Auto) (1.56-6.13) K/mm3 Lymph # (Auto) (1.18-3.74) K/mm3 [place] # (Auto) (0.24-0.36) K/mm3 Eos # (Auto) (0.04-0.36) K/mm3 Baso # (Auto) (0.01-0.08) K/mm3 ESR (0-20) mm/hr PT (9.7-12.0) SECONDS INR APTT (21.7-31.4) SECONDS Sodium (136-145) mEq/L Potassium (3.5-5.1) mEq/L Chloride (98-107) mEq/L Carbon Dioxide (21-32) mEq/L Anion Gap (5-15) BUN (7-18) mg/dL Creatinine (0.55-1.02) mg/dL Est Cr Clr Drug Dosing mL/min Estimated GFR (MDRD) (>60) mL/min BUN/Creatinine Ratio (14-18) Glucose (70-99) mg/dL Lactic Acid (0.4-2.0) mmol/L Calcium (8.5-10.1) mg/dL Magnesium (1.8-2.4) mg/dL Total Bilirubin (0.2-1.0) mg/dL GGT (5-55) U/L AST (15-37) U/L ALT (14-59) U/L Alkaline Phosphatase (46-116) U/L Troponin I < 0.017 (0.00-0.056) ng/mL C-Reactive Protein (<1.0) mg/dL NT-Pro-B Natriuret Pep (0-125) pg/mL Total Protein (6.4-8.2) g/dl Albumin (3.4-5.0) g/dl Globulin gm/dL Albumin/Globulin Ratio (1-2) Lipase (73-393) U/L Urine Color (Yellow) Urine Appearance (Clear) Urine pH (5.0-8.0) Ur Specific Martha (1.005-1.030) Urine Protein (Negative) Urine Glucose (UA) (Negative) Urine Ketones (Negative) Urine Occult Blood (Negative) Urine Nitrite (Negative) Urine Bilirubin (Negative) Urine Urobilinogen (0.2-1.0) Ur Leukocyte Esterase (Negative) Urine RBC (0-5) /hpf Urine WBC (0-5) /hpf Ur Squamous Epith Cells (0-5) /hpf Urine Bacteria (FEW) /hpf Urine Mucus (FEW) /hpf Ketones 5.5 (0.0-0.3) mM SARS-CoV-2 RNA (ALEXANDRA) Negative (NEGATIVE) 10/06/20 Range/Units 20:45 WBC (3.98-10.04) K/mm3 RBC (3.98-5.22) M/mm3 Hgb (11.2-15.7) gm/dl Hct (34.1-44.9) % MCV (79.4-94.8) fl MCH (25.6-32.2) pg MCHC (32.2-35.5) g/dl RDW Std Deviation (36.4-46.3) fL Plt Count (182-369) K/mm3 MPV (9.4-12.3) fl Neut % (Auto) (34.0-71.1) % Lymph % (Auto) (19.3-51.7) % [place] % (Auto) (4.7-12.5) % Eos % (Auto) (0.7-5.8) Baso % (Auto) (0.1-1.2) % Neut # (Auto) (1.56-6.13) K/mm3 Lymph # (Auto) (1.18-3.74) K/mm3 [place] # (Auto) (0.24-0.36) K/mm3 Eos # (Auto) (0.04-0.36) K/mm3 Baso # (Auto) (0.01-0.08) K/mm3 ESR (0-20) mm/hr PT (9.7-12.0) SECONDS INR APTT (21.7-31.4) SECONDS Sodium (136-145) mEq/L Potassium (3.5-5.1) mEq/L Chloride (98-107) mEq/L Carbon Dioxide (21-32) mEq/L Anion Gap (5-15) BUN (7-18) mg/dL Creatinine (0.55-1.02) mg/dL Est Cr Clr Drug Dosing mL/min Estimated GFR (MDRD) (>60) mL/min BUN/Creatinine Ratio (14-18) Glucose (70-99) mg/dL Lactic Acid (0.4-2.0) mmol/L Calcium (8.5-10.1) mg/dL Magnesium (1.8-2.4) mg/dL Total Bilirubin (0.2-1.0) mg/dL GGT (5-55) U/L AST (15-37) U/L ALT (14-59) U/L Alkaline Phosphatase (46-116) U/L Troponin I (0.00-0.056) ng/mL C-Reactive Protein (<1.0) mg/dL NT-Pro-B Natriuret Pep (0-125) pg/mL Total Protein (6.4-8.2) g/dl Albumin (3.4-5.0) g/dl Globulin gm/dL Albumin/Globulin Ratio (1-2) Lipase (73-393) U/L Urine Color Yellow (Yellow) Urine Appearance Slt cloudy H (Clear) Urine pH 6.0 (5.0-8.0) Ur Specific Martha 1.025 (1.005-1.030) Urine Protein Trace H (Negative) Urine Glucose (UA) Negative (Negative) Urine Ketones 2+ H (Negative) Urine Occult Blood Negative (Negative) Urine Nitrite Negative (Negative) Urine Bilirubin 2+ H (Negative) Urine Urobilinogen 2.0 H (0.2-1.0) Ur Leukocyte Esterase Negative (Negative) Urine RBC 0-5 (0-5) /hpf Urine WBC 0-5 (0-5) /hpf Ur Squamous Epith Cells 10-20 H (0-5) /hpf Urine Bacteria Many H (FEW) /hpf Urine Mucus Moderate H (FEW) /hpf Ketones (0.0-0.3) mM SARS-CoV-2 RNA (ALEXANDRA) (NEGATIVE) Med Orders - Current: Current Medications Acetaminophen (Acetaminophen 325 Mg Tab) 650 mg PO Q4H PRN PRN Reason: Pain (Mild 1-3)/fever Last Admin: 10/06/20 20:35 Dose: 650 mg Documented by: Albuterol/Ipratropium (Albuterol/Ipratropium 3.0-0.5 Mg/3 Ml Neb Soln) 3 ml NEB Q4H PRN PRN Reason: Shortness Of Breath/wheezing Docusate Sodium (Docusate Sodium 100 Mg Cap) 100 mg PO BID PRN PRN Reason: Constipation Enoxaparin Sodium (Enoxaparin 40 Mg/0.4 Ml Syringe) 40 mg SUBCUT DAILY [facility] Lactated Ringer's (Ringers, Lactated) 1,000 mls @ 100 mls/hr IV ASDIRECTED [facility] Last Admin: 10/07/20 01:23 Dose: 100 mls/hr Documented by: Ondansetron HCl (Ondansetron 4 Mg Tab.Dis) 4 mg PO Q4H PRN PRN Reason: nausea, able to take PO Oxycodone HCl (Oxycodone 5 Mg Tab) 5 mg PO Q4H PRN PRN Reason: Pain (moderate 4-6) Temazepam (Temazepam 15 Mg Cap) 15 mg PO BEDTIME PRN PRN Reason: Sleep Discontinued Medications Dextrose/Sodium Chloride (Dextrose 5%-Normal Saline) 1,000 mls @ 999 mls/hr IV ASDIRECTED [facility] Last Admin: 10/06/20 13:17 Dose: 999 mls/hr Documented by: Dextrose/Lactated Ringer's (Dextrose 5%-Lactated Ringers) 1,000 mls @ 500 mls/hr IV ASDIRECTED [facility] Ondansetron HCl (Ondansetron 4 Mg/2 Ml Sdv) 4 mg IVPUSH ONETIME ONE Stop: 10/06/20 12:51 Last Admin: 10/06/20 13:17 Dose: 4 mg Documented by: - Exam Quality Assessment: Supplemental Oxygen, DVT Prophylaxis Central Line Total Time: 0Days 15Hours General: Alert, Oriented, Cooperative, No Acute Distress HEENT: Pupils Equal, Pupils Reactive, EOMI, Mucous Membr. Moist/[place] Neck: Supple, Trachea Midline Lungs: Normal Respiratory Effort, Crackles (Predominantly right side) Cardiovascular: Regular Rate, Regular Rhythm GI/Abdominal Exam: Normal Bowel Sounds, Soft, Non-Tender, No Distention (Female) Exam: Deferred Back Exam: Normal Inspection, Full Range of Motion Extremities: Normal Inspection, Normal Range of Motion, No Pedal Edema Skin: Warm, Dry, Intact Neurological: No New Focal Deficit, Normal Gait, Normal Speech Psy/Mental Status: Alert, Normal Affect, Normal Mood - Patient Data Lab Results Last 24 hrs: Laboratory Results - last 24 hr 10/06/20 10/06/20 10/06/20 Range/Units 12:55 12:55 12:55 WBC 11.60 H (3.98-10.04) K/mm3 RBC 3.73 L (3.98-5.22) M/mm3 Hgb 11.9 (11.2-15.7) gm/dl Hct 37.6 (34.1-44.9) % MCV 100.8 H (79.4-94.8) fl MCH 31.9 (25.6-32.2) pg MCHC 31.6 L (32.2-35.5) g/dl RDW Std Deviation 64.2 H (36.4-46.3) fL Plt Count 239 (182-369) K/mm3 MPV 10.2 (9.4-12.3) fl Neut % (Auto) 70.7 (34.0-71.1) % Lymph % (Auto) 23.8 (19.3-51.7) % [place] % (Auto) 4.9 (4.7-12.5) % Eos % (Auto) 0 L (0.7-5.8) Baso % (Auto) 0.3 (0.1-1.2) % Neut # (Auto) 8.20 H (1.56-6.13) K/mm3 Lymph # (Auto) 2.76 (1.18-3.74) K/mm3 [place] # (Auto) 0.57 H (0.24-0.36) K/mm3 Eos # (Auto) 0.00 L (0.04-0.36) K/mm3 Baso # (Auto) 0.04 (0.01-0.08) K/mm3 ESR (0-20) mm/hr PT 16.0 H (9.7-12.0) SECONDS INR 1.51 APTT 32.0 H (21.7-31.4) SECONDS Sodium 141 (136-145) mEq/L Potassium 3.6 (3.5-5.1) mEq/L Chloride 103 (98-107) mEq/L Carbon Dioxide 22 (21-32) mEq/L Anion Gap 19.6 H (5-15) BUN 12 (7-18) mg/dL Creatinine 0.6 (0.55-1.02) mg/dL Est Cr Clr Drug Dosing 80.75 mL/min Estimated GFR (MDRD) > 60 (>60) mL/min BUN/Creatinine Ratio 20.0 H (14-18) Glucose 87 (70-99) mg/dL Lactic Acid (0.4-2.0) mmol/L Calcium 8.4 L (8.5-10.1) mg/dL Magnesium 1.7 L (1.8-2.4) mg/dL Total Bilirubin 0.7 (0.2-1.0) mg/dL GGT 41 (5-55) U/L AST 21 (15-37) U/L ALT 12 L (14-59) U/L Alkaline Phosphatase 103 (46-116) U/L Troponin I (0.00-0.056) ng/mL C-Reactive Protein 0.6 (<1.0) mg/dL NT-Pro-B Natriuret Pep (0-125) pg/mL Total Protein 5.5 L (6.4-8.2) g/dl Albumin 2.3 L (3.4-5.0) g/dl Globulin 3.2 gm/dL Albumin/Globulin Ratio 0.7 L (1-2) Lipase 79 (73-393) U/L Urine Color (Yellow) Urine Appearance (Clear) Urine pH (5.0-8.0) Ur Specific Martha (1.005-1.030) Urine Protein (Negative) Urine Glucose (UA) (Negative) Urine Ketones (Negative) Urine Occult Blood (Negative) Urine Nitrite (Negative) Urine Bilirubin (Negative) Urine Urobilinogen (0.2-1.0) Ur Leukocyte Esterase (Negative) Urine RBC (0-5) /hpf Urine WBC (0-5) /hpf Ur Squamous Epith Cells (0-5) /hpf Urine Bacteria (FEW) /hpf Urine Mucus (FEW) /hpf Ketones (0.0-0.3) mM SARS-CoV-2 RNA (ALEXANDRA) (NEGATIVE) 10/06/20 10/06/20 10/06/20 Range/Units 12:55 12:55 12:55 WBC (3.98-10.04) K/mm3 RBC (3.98-5.22) M/mm3 Hgb (11.2-15.7) gm/dl Hct (34.1-44.9) % MCV (79.4-94.8) fl MCH (25.6-32.2) pg MCHC (32.2-35.5) g/dl RDW Std Deviation (36.4-46.3) fL Plt Count (182-369) K/mm3 MPV (9.4-12.3) fl Neut % (Auto) (34.0-71.1) % Lymph % (Auto) (19.3-51.7) % [place] % (Auto) (4.7-12.5) % Eos % (Auto) (0.7-5.8) Baso % (Auto) (0.1-1.2) % Neut # (Auto) (1.56-6.13) K/mm3 Lymph # (Auto) (1.18-3.74) K/mm3 [place] # (Auto) (0.24-0.36) K/mm3 Eos # (Auto) (0.04-0.36) K/mm3 Baso # (Auto) (0.01-0.08) K/mm3 ESR 53 H (0-20) mm/hr PT (9.7-12.0) SECONDS INR APTT (21.7-31.4) SECONDS Sodium (136-145) mEq/L Potassium (3.5-5.1) mEq/L Chloride (98-107) mEq/L Carbon Dioxide (21-32) mEq/L Anion Gap (5-15) BUN (7-18) mg/dL Creatinine (0.55-1.02) mg/dL Est Cr Clr Drug Dosing mL/min Estimated GFR (MDRD) (>60) mL/min BUN/Creatinine Ratio (14-18) Glucose (70-99) mg/dL Lactic Acid 0.8 (0.4-2.0) mmol/L Calcium (8.5-10.1) mg/dL Magnesium (1.8-2.4) mg/dL Total Bilirubin (0.2-1.0) mg/dL GGT (5-55) U/L AST (15-37) U/L ALT (14-59) U/L Alkaline Phosphatase (46-116) U/L Troponin I (0.00-0.056) ng/mL C-Reactive Protein (<1.0) mg/dL NT-Pro-B Natriuret Pep 117 (0-125) pg/mL Total Protein (6.4-8.2) g/dl Albumin (3.4-5.0) g/dl Globulin gm/dL Albumin/Globulin Ratio (1-2) Lipase (73-393) U/L Urine Color (Yellow) Urine Appearance (Clear) Urine pH (5.0-8.0) Ur Specific Martha (1.005-1.030) Urine Protein (Negative) Urine Glucose (UA) (Negative) Urine Ketones (Negative) Urine Occult Blood (Negative) Urine Nitrite (Negative) Urine Bilirubin (Negative) Urine Urobilinogen (0.2-1.0) Ur Leukocyte Esterase (Negative) Urine RBC (0-5) /hpf Urine WBC (0-5) /hpf Ur Squamous Epith Cells (0-5) /hpf Urine Bacteria (FEW) /hpf Urine Mucus (FEW) /hpf Ketones (0.0-0.3) mM SARS-CoV-2 RNA (ALEXANDRA) (NEGATIVE) 10/06/20 10/06/20 10/06/20 Range/Units 12:55 12:55 13:55 WBC (3.98-10.04) K/mm3 RBC (3.98-5.22) M/mm3 Hgb (11.2-15.7) gm/dl Hct (34.1-44.9) % MCV (79.4-94.8) fl MCH (25.6-32.2) pg MCHC (32.2-35.5) g/dl RDW Std Deviation (36.4-46.3) fL Plt Count (182-369) K/mm3 MPV (9.4-12.3) fl Neut % (Auto) (34.0-71.1) % Lymph % (Auto) (19.3-51.7) % [place] % (Auto) (4.7-12.5) % Eos % (Auto) (0.7-5.8) Baso % (Auto) (0.1-1.2) % Neut # (Auto) (1.56-6.13) K/mm3 Lymph # (Auto) (1.18-3.74) K/mm3 [place] # (Auto) (0.24-0.36) K/mm3 Eos # (Auto) (0.04-0.36) K/mm3 Baso # (Auto) (0.01-0.08) K/mm3 ESR (0-20) mm/hr PT (9.7-12.0) SECONDS INR APTT (21.7-31.4) SECONDS Sodium (136-145) mEq/L Potassium (3.5-5.1) mEq/L Chloride (98-107) mEq/L Carbon Dioxide (21-32) mEq/L Anion Gap (5-15) BUN (7-18) mg/dL Creatinine (0.55-1.02) mg/dL Est Cr Clr Drug Dosing mL/min Estimated GFR (MDRD) (>60) mL/min BUN/Creatinine Ratio (14-18) Glucose (70-99) mg/dL Lactic Acid (0.4-2.0) mmol/L Calcium (8.5-10.1) mg/dL Magnesium (1.8-2.4) mg/dL Total Bilirubin (0.2-1.0) mg/dL GGT (5-55) U/L AST (15-37) U/L ALT (14-59) U/L Alkaline Phosphatase (46-116) U/L Troponin I < 0.017 (0.00-0.056) ng/mL C-Reactive Protein (<1.0) mg/dL NT-Pro-B Natriuret Pep (0-125) pg/mL Total Protein (6.4-8.2) g/dl Albumin (3.4-5.0) g/dl Globulin gm/dL Albumin/Globulin Ratio (1-2) Lipase (73-393) U/L Urine Color (Yellow) Urine Appearance (Clear) Urine pH (5.0-8.0) Ur Specific Martha (1.005-1.030) Urine Protein (Negative) Urine Glucose (UA) (Negative) Urine Ketones (Negative) Urine Occult Blood (Negative) Urine Nitrite (Negative) Urine Bilirubin (Negative) Urine Urobilinogen (0.2-1.0) Ur Leukocyte Esterase (Negative) Urine RBC (0-5) /hpf Urine WBC (0-5) /hpf Ur Squamous Epith Cells (0-5) /hpf Urine Bacteria (FEW) /hpf Urine Mucus (FEW) /hpf Ketones 5.5 (0.0-0.3) mM SARS-CoV-2 RNA (ALEXANDRA) Negative (NEGATIVE) 10/06/20 Range/Units 20:45 WBC (3.98-10.04) K/mm3 RBC (3.98-5.22) M/mm3 Hgb (11.2-15.7) gm/dl Hct (34.1-44.9) % MCV (79.4-94.8) fl MCH (25.6-32.2) pg MCHC (32.2-35.5) g/dl RDW Std Deviation (36.4-46.3) fL Plt Count (182-369) K/mm3 MPV (9.4-12.3) fl Neut % (Auto) (34.0-71.1) % Lymph % (Auto) (19.3-51.7) % [place] % (Auto) (4.7-12.5) % Eos % (Auto) (0.7-5.8) Baso % (Auto) (0.1-1.2) % Neut # (Auto) (1.56-6.13) K/mm3 Lymph # (Auto) (1.18-3.74) K/mm3 [place] # (Auto) (0.24-0.36) K/mm3 Eos # (Auto) (0.04-0.36) K/mm3 Baso # (Auto) (0.01-0.08) K/mm3 ESR (0-20) mm/hr PT (9.7-12.0) SECONDS INR APTT (21.7-31.4) SECONDS Sodium (136-145) mEq/L Potassium (3.5-5.1) mEq/L Chloride (98-107) mEq/L Carbon Dioxide (21-32) mEq/L Anion Gap (5-15) BUN (7-18) mg/dL Creatinine (0.55-1.02) mg/dL Est Cr Clr Drug Dosing mL/min Estimated GFR (MDRD) (>60) mL/min BUN/Creatinine Ratio (14-18) Glucose (70-99) mg/dL Lactic Acid (0.4-2.0) mmol/L Calcium (8.5-10.1) mg/dL Magnesium (1.8-2.4) mg/dL Total Bilirubin (0.2-1.0) mg/dL GGT (5-55) U/L AST (15-37) U/L ALT (14-59) U/L Alkaline Phosphatase (46-116) U/L Troponin I (0.00-0.056) ng/mL C-Reactive Protein (<1.0) mg/dL NT-Pro-B Natriuret Pep (0-125) pg/mL Total Protein (6.4-8.2) g/dl Albumin (3.4-5.0) g/dl Globulin gm/dL Albumin/Globulin Ratio (1-2) Lipase (73-393) U/L Urine Color Yellow (Yellow) Urine Appearance Slt cloudy H (Clear) Urine pH 6.0 (5.0-8.0) Ur Specific Martha 1.025 (1.005-1.030) Urine Protein Trace H (Negative) Urine Glucose (UA) Negative (Negative) Urine Ketones 2+ H (Negative) Urine Occult Blood Negative (Negative) Urine Nitrite Negative (Negative) Urine Bilirubin 2+ H (Negative) Urine Urobilinogen 2.0 H (0.2-1.0) Ur Leukocyte Esterase Negative (Negative) Urine RBC 0-5 (0-5) /hpf Urine WBC 0-5 (0-5) /hpf Ur Squamous Epith Cells 10-20 H (0-5) /hpf Urine Bacteria Many H (FEW) /hpf Urine Mucus Moderate H (FEW) /hpf Ketones (0.0-0.3) mM SARS-CoV-2 RNA (ALEXANDRA) (NEGATIVE) Result Diagrams: 10/06/20 12:55 10/06/20 12:55 Sepsis Event Note - Evaluation Sepsis Screening Result: No Definite Risk - Focused Exam Vital Signs: Vital Signs Temp Pulse Resp BP Pulse Ox 10/07/20 06:04 36.4 C 92 16 109/69 94 L 10/06/20 20:21 36.6 C 92 20 110/65 93 L - Problem List & Annotations (1) Adult failure to thrive syndrome SNOMED Code(s): 397465985 Code(s): R62.7 - ADULT FAILURE TO THRIVE Status: Acute Priority: High Current Visit: Yes (2) Metastatic cancer to bone Status: Chronic Priority: High Current Visit: Yes (3) Metastatic cancer to brain Status: Chronic Priority: High Current Visit: Yes (4) Metastatic cancer to liver Status: Chronic Priority: High Current Visit: Yes (5) Chronic pain due to malignant neoplastic disease SNOMED Code(s): 337898726 Code(s): G89.3 - NEOPLASM RELATED PAIN (ACUTE) (CHRONIC) Status: Acute Priority: High Current Visit: Yes (6) Dehydration SNOMED Code(s): 17636939 Code(s): E86.0 - DEHYDRATION Status: Resolved Priority: High Current Visit: Yes (7) Anorexia SNOMED Code(s): 36256284 Code(s): R63.0 - ANOREXIA Status: Chronic Priority: High Current Visit: Yes - Problem List Review Problem List Initiated/Reviewed/Updated: Yes - My Orders Last 24 Hours: My Active Orders 10/06/20 Lunch Heart Healthy Diet [DIET] 10/06/20 13:58 Patient Status [ADT] Routine Oxygen Therapy [RC] PRN RT Aerosol Therapy [RC] ASDIRECTED Up With Assistance [RC] ASDIRECTED Vital Signs [RC] Q6H Consult to Hospice [CONS] Routine Acetaminophen [TylenoL] 650 mg PO Q4H PRN Albuterol/Ipratropium [DuoNeb 3.0-0.5 MG/3 ML] 3 ml NEB Q4H PRN Docusate Sodium [Colace] 100 mg PO BID PRN Ondansetron [Zofran ODT] 4 mg PO Q4H PRN oxyCODONE 5 mg PO Q4H PRN Resuscitation Status Routine 10/06/20 14:00 Lactated Ringers [Ringers, Lactated] 1,000 ml IV ASDIRECTED 10/06/20 21:00 Temazepam [Restoril] 15 mg PO BEDTIME PRN 10/07/20 09:00 Enoxaparin [Lovenox] 40 mg SUBCUT DAILY - Assessment Assessment:: The patient is a chronically ill 69-year-old lady who was admitted primarily out of concern for severe dehydration. She has been fluid resuscitated and her IV fluids will be continued. She is also been recommended to continue with her diet as tolerated. The patient and the patient's are also considering going home and not necessarily on hospice. Physical therapy to evaluate. Possible home tomorrow with home health. - Plan Plan:: The patient is a 69-year-old lady who has been admitted to inpatient under DO NOT INTUBATE/DO NOT RESUSCITATE comfort measures only category. She has since really has end-stage cancer. The patient will be rehydrated as she is hypovolemic. The patient will be fluid resuscitated with the use of Ringer's lactate at 100 mL/h. The patient's pain will be controlled with the use of narcotic pain medications as necessary. I have also ordered Ativan to help with anxiety. No further testing will be ordered. Hospice has been consulted. I also had a long discussion with the patient and the patient's regarding hospice and palliative care. Overall the patient's prognosis is poor.
[2020-10-07] MEDS: Enoxaparin 40 MG/0.4 ML Syringe SUBCUT SCH (08:15)
[2020-10-07] MEDS ORDERED: LORazepam 2 MG/ML SDV IVPUSH PRN (08:16)
--- NOTE | 2020-10-08 07:50 | PCM.DCSUM1 ---
Discharge Summary - Discharge Data Discharge Date: 10/08/20 Discharge Disposition: Home, W Home Health Agency 06 Condition: Fair - Referral to Home Health Date of Face to Face Encounter: 10/08/20 Reason for Homebound Status: A [id number] meeting was conducted with the patient and family. The patient has the following diagnoses; weakness, anorexia, adult failure to thrive, metastatic cancer to bones/brain/liver, chronic pain due to malignant neoplastic disease, dehydration and see discharge summary for additional diagnoses. The patient needs home health care nursing services for; skilled assessment, vital signs, disease education and management, disease progression education, pain management and medication education. Physical therapy for gait training, transfer training, safety education, n euromuscular reeducation, therapeutic exercise, caregiver training, balance training, equipment and recommendations. Occupational Therapy for activities of daily living, balance training, functional mobility training, safety education, therapeutic activities, therapeutic exercise. 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 Patient is currently homebound related to decreased activity tolerance, decreased level of endurance and need an assist for a walker. The patient will be followed by her primary provider Dr. Mace. Primary Care Physician: Laureano Mace MD Skilled Need: Assistance with ADL's - Discharge Diagnosis/Problem(s) (1) Adult failure to thrive syndrome SNOMED Code(s): 200770846 ICD Code: R62.7 - ADULT FAILURE TO THRIVE Status: Chronic Priority: High (2) Metastatic cancer to bone Status: Chronic Priority: High (3) Metastatic cancer to brain Status: Chronic Priority: High (4) Metastatic cancer to liver Status: Chronic Priority: High (5) Chronic pain due to malignant neoplastic disease SNOMED Code(s): 342717855 ICD Code: G89.3 - NEOPLASM RELATED PAIN (ACUTE) (CHRONIC) Status: Acute Priority: High (6) Dehydration SNOMED Code(s): 24007106 ICD Code: E86.0 - DEHYDRATION Status: Resolved Priority: High (7) Anorexia SNOMED Code(s): 79833588 ICD Code: R63.0 - ANOREXIA Status: Chronic Priority: High - Patient Summary/Data Consults: Consultations 10/06/20 13:58 Consult to Hospice [CONS] Routine 10/07/20 11:29 PT Evaluation and Treatment [CONS] Routine 10/07/20 11:30 OT Evaluation and Treatment [CONS] Routine Hospital Course: The patient is a 69-year-old lady who had presented to the emergency department essentially unable to care for herself. She has not eaten or drank anything in 3 days. She does have an underlying history of lung cancer that has metastasized to her brain, spine and liver. The patient has reported that nothing tastes good for her. The patient has a chemotherapy appointment tomorrow that she canceled as she does not want any further chemotherapy or radiation treatment. The patient also says that she has been too weak to use her walker at home. Reportedly the patient's brain tumors have grown. Because of the patient's dehydration she was aggressively resuscitated with the use of lactated Ringer's. The patient also had been afforded a diet as tolerated however she said that she had not been eating very well because everything tastes metallic. The discussion was held with the patient and the patient's , Toy, and the idea of comfort measures and hospice care was provided. The patient initially did not want hospice but she had discontinued her chemotherapy. The patient's fluid volume status had improved after her short course of hospitalization. I am concerned that she may end up in the same situation if she does not maintain adequate fluid intake. The patient had improved to the point that she felt like she could be discharged to see the rest of her family. The patient also reported that she had "things" to do and wanted to go home for this. The patient has been recommended continue with her diet as tolerated. Home health with PT OT has also been ordered. Hospice consult has been completed as the patient and the patient's have inquired about hospice. The patient is also to have activity as tolerated. She has been discharged from acute hospitalization with the recommendations listed above. At this point and the patient's chronic illness that she is a very high risk for readmission. Overall, the patient's prognosis is poor. - Patient Instructions Diet: Usual Diet as Tolerated Activity: As Tolerated - Discharge Plan *PRESCRIPTION DRUG MONITORING PROGRAM REVIEWED*: Not Applicable *COPY OF PRESCRIPTION DRUG MONITORING REPORT IN PATIENT ILIANA: Not Applicable Home Medications: Home Meds Non-Formulary Medication [NF Drug] 0 each .XX ASDIRECTED 10/06/20 [History] Other Amb Orders: OT Evaluation and Treatment [CONS] Location: None Selected PT Evaluation and Treatment [CONS] Location: None Selected Patient Handouts: Failure to Thrive, Adult, [id number] Forms: ED Department Discharge Referrals: Laureano Mace MD [Primary Care Provider] - 10/16/20 8:10 am (this is your arrival time.) - Discharge Summary/Plan Comment DC Time >30 min.: Yes - General Info Date of Service: 10/08/20 Admission Dx/Problem (Free Text: Admission Diagnosis/Problem Admission Diagnosis/Problem physically weak, unable to ambulate, lung cancer metastatic to bones, brain and liver. The patient is not continuing chemotherapy Subjective Update: The patient says that she is feeling better. She is concerned about accomplishing things at home. The patient and the patient's thinks she can go home. Functional Status: Reports: Pain Controlled, Tolerating Diet - Review of Systems General: Reports: Weakness, Fatigue HEENT: Reports: No Symptoms Pulmonary: Reports: No Symptoms Cardiovascular: Reports: No Symptoms Gastrointestinal: Reports: No Symptoms Genitourinary: Reports: No Symptoms Musculoskeletal: Reports: No Symptoms Skin: Reports: No Symptoms Neurological: Reports: No Symptoms Psychiatric: Reports: No Symptoms - Patient Data Vitals - Most Recent: Last Vital Signs Temp 36.7 C 10/07/20 20:30 Pulse 94 10/07/20 20:30 Resp 18 10/07/20 20:30 BP 102/56 L 10/07/20 20:30 Pulse Ox 92 L 10/07/20 20:30 Weight - Most Recent: 69.4 kg I&O - Last 24 hours: Intake & Output 10/07/20 10/08/20 10/08/20 22:59 06:59 14:59 Intake Total 2733 1395 Output Total 400 450 Balance 2333 945 Med Orders - Current: Current Medications Acetaminophen (Acetaminophen 325 Mg Tab) 650 mg PO Q4H PRN PRN Reason: Pain (Mild 1-3)/fever Last Admin: 10/06/20 20:35 Dose: 650 mg Documented by: Albuterol/Ipratropium (Albuterol/Ipratropium 3.0-0.5 Mg/3 Ml Neb Soln) 3 ml NEB Q4H PRN PRN Reason: Shortness Of Breath/wheezing Docusate Sodium (Docusate Sodium 100 Mg Cap) 100 mg PO BID PRN PRN Reason: Constipation Enoxaparin Sodium (Enoxaparin 40 Mg/0.4 Ml Syringe) 40 mg SUBCUT DAILY [facility] Last Admin: 10/07/20 08:15 Dose: 40 mg Documented by: Lactated Ringer's (Ringers, Lactated) 1,000 mls @ 100 mls/hr IV ASDIRECTED [facility] Last Admin: 10/07/20 20:30 Dose: 100 mls/hr Documented by: Lorazepam (Lorazepam 2 Mg/Ml Sdv) 1 mg IVPUSH Q6HR PRN PRN Reason: anxiety/agitation Ondansetron HCl (Ondansetron 4 Mg Tab.Dis) 4 mg PO Q4H PRN PRN Reason: nausea, able to take PO Oxycodone HCl (Oxycodone 5 Mg Tab) 5 mg PO Q4H PRN PRN Reason: Pain (moderate 4-6) Last Admin: 10/07/20 16:17 Dose: 5 mg Documented by: Temazepam (Temazepam 15 Mg Cap) 15 mg PO BEDTIME PRN PRN Reason: Sleep Discontinued Medications Dextrose/Sodium Chloride (Dextrose 5%-Normal Saline) 1,000 mls @ 999 mls/hr IV ASDIRECTED [facility] Last Admin: 10/06/20 13:17 Dose: 999 mls/hr Documented by: Dextrose/Lactated Ringer's (Dextrose 5%-Lactated Ringers) 1,000 mls @ 500 mls[facility] On[facility] (Ondansetron 4 Mg/2 Ml Sdv) 4 mg IVPUSH ONETIME ONE Stop: 10/06/20 12:51 Last Admin: 10/06/20 13:17 Dose: 4 mg Documented by: - Exam Quality Assessment: Denies: Supplemental Oxygen, DVT Prophylaxis General: Reports: Alert, Oriented, Cooperative HEENT: Reports: Pupils Equal, Pupils Reactive, EOMI, Mucous Membr. Moist/[place] Neck: Reports: Supple, Trachea Midline Lungs: Reports: Decreased Breath Sounds, Crackles Cardiovascular: Reports: Regular Rate, Regular Rhythm GI/Abdominal Exam: Normal Bowel Sounds, Soft, No Distention (Female) Exam: Deferred Rectal (Female) Exam: Deferred Back Exam: Reports: Normal Inspection, Full Range of Motion Extremities: Normal Inspection, No Pedal Edema Skin: Reports: Warm, Dry, Intact Neurological: Reports: No New Focal Deficit Psy/Mental Status: Reports: Alert, Normal Affect, Depressed
[2020-10-08] MEDS: Enoxaparin 40 MG/0.4 ML Syringe SUBCUT SCH (08:10)
== END 2020-10-08 11:17 | disposition home health service (06) | DRG 422 ==
LOC: JD.ED 12:21 → JD.MS 13:58
PROVIDERS: ADMIT Internal Medicine; ATTEND Internal Medicine
DX: E86.0 Dehydration (principal); C78.7 Secondary malignant neoplasm of liver and intrahepatic bile duct; C79.51 Secondary malignant neoplasm of bone; C79.31 Secondary malignant neoplasm of brain; G89.3 Neoplasm related pain (acute) (chronic); Z66 Do not resuscitate; Z20.822 Contact with and (suspected) exposure to COVID-19; Z51.5 Encounter for palliative care; R62.7 Adult failure to thrive; C34.91 Malignant neoplasm of unspecified part of right bronchus or lung; H54.7 Unspecified visual loss; M19.90 Unspecified osteoarthritis, unspecified site; Z87.891 Personal history of nicotine dependence
CPT/HCPCS: 36415; 36556; 71045; 71045-26; 80048; 80053; 81001; 82009; 82977; 83605; 83690; 83735; 83880; 84484; 85025; 85610; 85652; 85730; 86140; 93005; 93010; 94761; 96374; 97116-GP; 97162-GP; 99223; 99233; 99239; 99285; 99285-25; A9270-GY; J1642; J1650; J2405; J7042; J7120; U0002

== ENCOUNTER 2021-01-31 12:24 | Emergency (ER) | payer BC ==
[2021-01-31] MEDS ORDERED: Sodium Chloride 0.9% 10 ML Syringe FLUSH PRN (12:52)
--- NOTE | 2021-01-31 13:02 | EDM.PDOC ---
ED HPI GENERAL MEDICAL PROBLEM - General Chief Complaint: Respiratory Problem Stated Complaint: [facility] Time Seen by Provider: 01/31/21 12:40 Source of Information: Reports: Patient, RN Notes Reviewed History Limitations: Reports: No Limitations - History of Present Illness INITIAL COMMENTS - FREE TEXT/NARRATIVE: Patient is a 70-year-old female who presents to the ER by [facility] for her shortness of breath. States she has been ill for about 1 week now. States that she has been around her grandchildren who she was made aware that had a cough or cold. Been having maybe some hot and cold feelings but no discernible fevers, a dry nonproductive cough, and just generalized lethargy. Patient states he has a history of lung cancer with mets to the back and brain. She is not currently on any sort of chemo or radiation. States that she had 1 dose of a Covid vaccine but did not receive the second. Primary care providers Dr. Mace. Patient was placed on oxygen via ambulance service, was on 10 L by a simple mask. I have titrated her down to 8 L by simple mask in the ER, O2 sats are about 95% at that time. Patient appears to be in no visible respiratory distress. Upper Back Pain Score (Numeric/FACES): 8 - Related Data Home Meds: Home Meds dexAMETHasone [Dexamethasone] 8 mg PO DAILY 01/31/21 [History] Past Medical History Oncologic (Cancer) History: Reports: Brain, Lung (primary lung w/ met to brain and back), Metastatic Social & Family History - Tobacco Use Tobacco Use Status *Q: Former Tobacco User Used Tobacco, but Quit: Yes Month/Year Tobacco Last Used: 30 years ago ED ROS GENERAL - Review of Systems Review Of Systems: Comprehensive ROS is negative, except as noted in HPI. ED EXAM, GENERAL - Physical Exam Exam: See Below Exam Limited By: No Limitations General Appearance: Alert, WD/WN, No Apparent Distress Respiratory/Chest: No Respiratory Distress, Lungs Clear, Normal Breath Sounds, No Accessory Muscle Use, Chest Non-Tender Cardiovascular: Normal Peripheral Pulses, Regular Rate, Rhythm, No Edema GI/Abdominal: Normal Bowel Sounds, Soft, Non-Tender, No Distention, No Mass Extremities: Normal Inspection, Normal Capillary Refill Neurological: Alert, Oriented, Normal Cognition, No Motor/Sensory Deficits Psychiatric: Normal Affect, Normal Mood Skin Exam: Warm, Dry, Intact, Normal Color, No Rash #1 Interpretation EKG Date: 01/31/21 Time: 01:03 Rhythm: NSR (sinus tach) Rate (Beats/Min): 103 [place]: Normal P-Wave: Present QRS: Normal ST-T: Normal QT: Normal Comparison: NA - No Prior EKG EKG Interpretation Comments: No obvious ischemia or acute ST changes noted, reviewed by myself and Dr. Moody. Course - Vital Signs Last Recorded V/S: Last Vital Signs Temp 97.9 F 01/31/21 12:37 Pulse 112 H 01/31/21 12:37 Resp 20 01/31/21 12:37 BP 90/70 01/31/21 12:37 Pulse Ox 79 L 01/31/21 12:37 - Orders/Labs/Meds Orders: Active Orders 24 hr Category Date Time Status Oxygen Therapy, ED [RC] ASDIRECTED Care 01/31/21 12:52 Active Peripheral IV Care [RC] . DIRECTED Care 01/31/21 12:52 Active Ang Chest [CT] Stat Exams 01/31/21 13:49 Ordered Chest 1V Frontal [CR] Stat Exams 01/31/21 12:51 Ordered INR,PT,PROTHROMBIN TIME [COAG] Stat Lab 01/31/21 16:03 Ordered PRO B-TYPE NATRIUR PEPT,BNPPRO [CHEM] Stat Lab 01/31/21 16:00 Ordered PTT,PARTIAL THROMBOPLSTIN TIME [COAG] Stat Lab 01/31/21 16:03 Ordered aPTT [PTT,PARTIAL THROMBOPLSTIN TIME] [COAG] Stat Lab 01/31/21 22:45 Ordered Heparin Sodium/D5W [Heparin 25,000 Units in D5W 500 ML] Med 01/31/21 16:15 Ordered 25,000 units in 500 ml IV TITRATE Sodium Chloride 0.9% [Saline Flush] Med 01/31/21 12:52 Active 10 ml FLUSH ASDIRECTED PRN Peripheral IV Insertion Adult [OM.PC] Routine Oth 01/31/21 12:52 Ordered Medication Orders Heparin Sodium/Dextrose (Heparin 25,000 Units In D5w 500 Ml) 25,000 units in 500 mls @ 21.881 mls/hr IV TITRATE HERLINDA; Protocol Last Admin: 01/31/21 16:34 Dose: 18 units/kg/hr, 21.881 mls/hr Documented by: CHANDAN Cosigned by: JUAN Sodium Chloride (Sodium Chloride 0.9% 10 Ml Syringe) 10 ml FLUSH ASDIRECTED PRN PRN Reason: Keep Vein Open Last Admin: 01/31/21 13:23 Dose: 10 ml Documented by: CHANDAN Labs: Laboratory Tests 01/31/21 01/31/21 01/31/21 Range/Units 12:30 13:15 13:15 WBC 8.30 (3.98-10.04) K/mm3 RBC 3.38 L (3.98-5.22) M/mm3 Hgb 11.7 (11.2-15.7) gm/dl Hct 36.6 (34.1-44.9) % MCV 108.3 H (79.4-94.8) fl MCH 34.6 H (25.6-32.2) pg MCHC 32.0 L (32.2-35.5) g/dl RDW Std Deviation 66.6 H (36.4-46.3) fL Plt Count 142 L (182-369) K/mm3 MPV 9.1 L (9.4-12.3) fl Neut % (Auto) 78.5 H (34.0-71.1) % Lymph % (Auto) 16.6 L (19.3-51.7) % Warren % (Auto) 4.0 L (4.7-12.5) % Eos % (Auto) 0.1 L (0.7-5.8) Baso % (Auto) 0.2 (0.1-1.2) % Neut # (Auto) 6.51 H (1.56-6.13) K/mm3 Lymph # (Auto) 1.38 (1.18-3.74) K/mm3 Warren # (Auto) 0.33 (0.24-0.36) K/mm3 Eos # (Auto) 0.01 L (0.04-0.36) K/mm3 Baso # (Auto) 0.02 (0.01-0.08) K/mm3 D-Dimer, Quantitative 3.05 H (0.19-0.50) mg/L Sodium (136-145) mEq/L Potassium (3.5-5.1) mEq/L Chloride (98-107) mEq/L Carbon Dioxide (21-32) mEq/L Anion Gap (5-15) BUN (7-18) mg/dL Creatinine (0.55-1.02) mg/dL Est Cr Clr Drug Dosing mL/min Estimated GFR (MDRD) (>60) mL/min BUN/Creatinine Ratio (14-18) Glucose (70-99) mg/dL Calcium (8.5-10.1) mg/dL Total Bilirubin (0.2-1.0) mg/dL AST (15-37) U/L ALT (14-59) U/L Alkaline Phosphatase (46-116) U/L Troponin I (0.00-0.056) ng/mL C-Reactive Protein (<1.0) mg/dL Total Protein (6.4-8.2) g/dl Albumin (3.4-5.0) g/dl Globulin gm/dL Albumin/Globulin Ratio (1-2) SARS-CoV-2 RNA (ALEXANDRA) Negative (NEGATIVE) 01/31/21 Range/Units 13:15 WBC (3.98-10.04) K/mm3 RBC (3.98-5.22) M/mm3 Hgb (11.2-15.7) gm/dl Hct (34.1-44.9) % MCV (79.4-94.8) fl MCH (25.6-32.2) pg MCHC (32.2-35.5) g/dl RDW Std Deviation (36.4-46.3) fL Plt Count (182-369) K/mm3 MPV (9.4-12.3) fl Neut % (Auto) (34.0-71.1) % Lymph % (Auto) (19.3-51.7) % Warren % (Auto) (4.7-12.5) % Eos % (Auto) (0.7-5.8) Baso % (Auto) (0.1-1.2) % Neut # (Auto) (1.56-6.13) K/mm3 Lymph # (Auto) (1.18-3.74) K/mm3 [place] # (Auto) (0.24-0.36) K/mm3 Eos # (Auto) (0.04-0.36) K/mm3 Baso # (Auto) (0.01-0.08) K/mm3 D-Dimer, Quantitative (0.19-0.50) mg/L Sodium 144 (136-145) mEq/L Potassium 3.3 L (3.5-5.1) mEq/L Chloride 107 (98-107) mEq/L Carbon Dioxide 23 (21-32) mEq/L Anion Gap 17.3 H (5-15) BUN 15 (7-18) mg/dL Creatinine 0.6 (0.55-1.02) mg/dL Est Cr Clr Drug Dosing 79.63 mL/min Estimated GFR (MDRD) > 60 (>60) mL/min BUN/Creatinine Ratio 25.0 H (14-18) Glucose 86 (70-99) mg/dL Calcium 8.9 (8.5-10.1) mg/dL Total Bilirubin 1.1 H (0.2-1.0) mg/dL AST 51 H (15-37) U/L ALT 34 (14-59) U/L Alkaline Phosphatase 196 H (46-116) U/L Troponin I < 0.017 (0.00-0.056) ng/mL C-Reactive Protein 2.7 H* (<1.0) mg/dL Total Protein 5.7 L (6.4-8.2) g/dl Albumin 2.4 L (3.4-5.0) g/dl Globulin 3.3 gm/dL Albumin/Globulin Ratio 0.7 L (1-2) SARS-CoV-2 RNA (ALEXANDRA) (NEGATIVE) Meds: Medications Generic Name Dose Route Start Last Admin Trade Name Freq PRN Reason Stop Dose Admin Heparin Sodium/Dextrose 25,000 units in 500 mls @ 21.881 mls/hr 01/31/21 16:15 01/31/21 16:34 Heparin 25,000 Units In D5w 500 Ml IV 18 units/kg/hr TITRATE HERLINDA 21.881 mls/hr Administration Protocol 18 UNITS/KG/HR Sodium Chloride 10 ml 01/31/21 12:52 01/31/21 13:23 Sodium Chloride 0.9% 10 Ml Syringe FLUSH 10 ml ASDIRECTED PRN Administration Keep Vein Open Discontinued Medications Generic Name Dose Route Start Last Admin Trade Name Freq PRN Reason Stop Dose Admin Heparin Sodium (Porcine) 5,000 units 01/31/21 16:04 01/31/21 16:34 Heparin Sodium 5,000 Units/Ml Vial IVPUSH 01/31/21 16:05 5,000 units .BOLUS ONE Administration Ceftriaxone Sodium 2 gm/ 100 mls @ 200 mls/hr 01/31/21 16:31 Sodium Chloride IV 01/31/21 17:00 ONETIME ONE - Re-Assessments/Exams Free Text/Narrative Re-Assessment/Exam: 01/31/21 13:03 Patient presents to the ER for evaluation of her acute shortness of breath again patient is being titrated down for oxygen and was on 8L via simple mask and was having O2 sats around 94 to 95% with that. Will get some basic labs a chest x- ray and a Covid swab was taken at the time of triage. 01/31/21 14:01 Labs have resulted, Covid screen was negative. Patient's D-dimer is elevated at 3.05, CRP elevated at 2.7. CMP is fairly unremarkable otherwise no obvious emergent abnormalities but the potassium was slightly low at 3.3. Troponin was also negative. Have titrated the patient down to 6 L via simple mask, if she does well with this we will go ahead and get her switched over to a nasal cannula and keep trying to titrate her down until we can reach an acceptable level of oxygenation with minimal oxygen needs. Departure - Departure Time of Disposition: 16:50 Disposition: DC/Tfer to [facility] 02 Condition: Good Clinical Impression: Pulmonary embolism on right, Hypoxia - Discharge Information Referrals: PCP,None [Primary Care Provider] - Forms: ED Department Discharge Sepsis Event Note (ED) - Evaluation Sepsis Screening Result: Possible Sepsis Risk - Focused Exam Vital Signs: Vital Signs Temp Pulse Resp BP Pulse Ox 01/31/21 12:37 97.9 F 112 H 20 90/70 79 L - My Orders Last 24 Hours: My Active Orders 01/31/21 12:51 Chest 1V Frontal [CR] Stat 01/31/21 12:52 Oxygen Therapy, ED [RC] ASDIRECTED Peripheral IV Care [RC] . DIRECTED Sodium Chloride 0.9% [Saline Flush] 10 ml FLUSH ASDIRECTED PRN Peripheral IV Insertion Adult [OM.PC] Routine 01/31/21 13:49 Ang Chest [CT] Stat 01/31/21 16:00 PRO B-TYPE NATRIUR PEPT,BNPPRO [CHEM] Stat 01/31/21 16:03 INR,PT,PROTHROMBIN TIME [COAG] Stat PTT,PARTIAL THROMBOPLSTIN TIME [COAG] Stat 01/31/21 16:15 Heparin Sodium/D5W [Heparin 25,000 Units in D5W 500 ML] 25,000 units in 500 ml IV TITRATE 01/31/21 22:45 aPTT [PTT,PARTIAL THROMBOPLSTIN TIME] [COAG] Stat - Assessment/Plan Last 24 Hours: My Active Orders 01/31/21 12:51 Chest 1V Frontal [CR] Stat 01/31/21 12:52 Oxygen Therapy, ED [RC] ASDIRECTED Peripheral IV Care [RC] . DIRECTED Sodium Chloride 0.9% [Saline Flush] 10 ml FLUSH ASDIRECTED PRN Peripheral IV Insertion Adult [OM.PC] Routine 01/31/21 13:49 Ang Chest [CT] Stat 01/31/21 16:00 PRO B-TYPE NATRIUR PEPT,BNPPRO [CHEM] Stat 01/31/21 16:03 INR,PT,PROTHROMBIN TIME [COAG] Stat PTT,PARTIAL THROMBOPLSTIN TIME [COAG] Stat 01/31/21 16:15 Heparin Sodium/D5W [Heparin 25,000 Units in D5W 500 ML] 25,000 units in 500 ml IV TITRATE 01/31/21 22:45 aPTT [PTT,PARTIAL THROMBOPLSTIN TIME] [COAG] Stat
[2021-01-31] MEDS ORDERED: Heparin Sodium 5,000 Units/ML Vial IVPUSH ONE (16:04)
[2021-01-31] MEDS ORDERED: Heparin Sodium/D5W 25,000 UNITS/500 ML BAG IV SCH (16:15)
[2021-01-31] MEDS ORDERED: cefTRIAXone 2 GM in Sodium Chloride 0.9% 100 ML IV ONE (16:31)
--- NOTE | 2021-02-01 06:53 | CR ---
Chest: Frontal view of the chest was obtained. Comparison: No prior chest imaging is available. Numerous nodules are seen throughout the chest. Heart size and mediastinum are within normal limits. Left-sided infusion catheter is seen. Slight scoliosis is noted within the spine. Impression: 1. Diffuse nodular densities within the chest suspicious for diffuse metastatic disease. Other less likely etiology could be diffuse granulomatous disease. 2. Left-sided infusion catheter. 3. Scoliosis. Diagnostic code #9
--- NOTE | 2021-02-01 06:53 | CT ---
CT chest Technique: Multiple axial sections were obtained from above the lung apices inferiorly through the lung bases. Intravenous contrast was utilized. Reconstructed coronal and sagittal images were obtained. Comparison: No prior chest CT is available, prior chest x-ray performed earlier on the same day (1:38 PM). Findings: Pulmonary arteries are well opacified. Filling defects are seen within the distal right main pulmonary artery extending into the segmental branches of the right middle lobe and within the right upper lobe. These findings are compatible with pulmonary embolism. Heart shows very minimal bowing of the interventricular septum suspicious for minimal right ventricular strain. Scattered pulmonary nodules are seen throughout both sides of the chest presumably due to metastatic nodules. Largest nodule measures approximately 1.3 cm. Focal density is noted within the right lung base which has the appearance of consolidation which most likely is chronic. Emphysematous changes are also noted within both lungs. Old scattered rib fractures are noted. Scattered sclerotic metastatic lesions are seen within the spine and ribs. Small right-sided pleural effusion is also noted. Two low-density lesions are noted within the liver which most likely represent cysts. Impression: 1. Prominent pulmonary emboli mostly within the right main pulmonary artery with minimal right ventricular strain. 2. Numerous pulmonary nodules within both lungs compatible with metastatic disease. Consolidation within a portion of the right lung base most likely chronic. 3. Numerous metastatic lesions are seen within the spine and ribs. Old bilateral rib fractures are also noted. 4. Small pleural effusion within the right lung base. 5. Other findings believed to be chronic as described above. Diagnostic code #5 I agree with preliminary report from [facility], finalized on 01/31/21, 4:40 PM DIRECTOR OF MANAGED SERVICES, code 1
== END 2021-01-31 18:20 ==
LOC: MERGE 12:24 → JD.ED 12:24
DX: I26.99 Other pulmonary embolism without acute cor pulmonale (principal); R09.02 Hypoxemia; Z87.891 Personal history of nicotine dependence; Z20.822 Contact with and (suspected) exposure to COVID-19
CPT/HCPCS: 36415; 71045; 71275; 80053; 83880; 84484; 85025; 85379; 85610; 85730; 86140; 87635; 87804; 93005; 96365; 96366; 96368; 99285; J0696; J1644; U0002

== ENCOUNTER 2021-02-18 07:20 | Observation (INO) | payer BC ==
--- NOTE | 2021-02-18 07:41 | EDM.PDOC ---
ED HPI GENERAL MEDICAL PROBLEM - General Chief Complaint: Trauma Stated Complaint: [facility] Time Seen by Provider: 02/18/21 07:20 - History of Present Illness INITIAL COMMENTS - FREE TEXT/NARRATIVE: 70-year-old female presents the emergency room brought in by EMS with right hip pain. Last night approximately 9 PM the patient fell. She thinks she hit her head. She is on Eliquis for blood clot. Her was able to help her up and get into bed but this morning she is too tender to really get up and walk. Patient denies any other injury associated with this most unfortunate event. Patient is currently being treated for stage IV lung cancer. This was in remission but showed up again in her brain and in her spine. For pain the patient uses [place] on occasion. She is really not complaining of any pain at this time but it does hurt if she tries to move. She was recently diagnosed with a blood clot in her lungs. She is taking Eliquis for this. - Related Data Allergies Allergy/AdvReac Type Severity Reaction Status Date / Time No Known Allergies Allergy Verified 02/18/21 08:43 Home Meds: Home Meds dexAMETHasone [Dexamethasone] 8 mg PO DAILY 01/31/21 [History] Apixaban [Eliquis] 5 mg PO DAILY 02/18/21 [History] Past Medical History HEENT History: Reports: Impaired Vision Cardiovascular History: Reports: High Cholesterol, None Respiratory History: Reports: SOB Gastrointestinal History: Reports: None SYSTEMS QA ANALYST History: Reports: Endometriosis, Other (See Below), Polycystic Ovaries Other SYSTEMS QA ANALYST History: hysterectomy Musculoskeletal History: Reports: Other (See Below), Osteoarthritis Neurological History: Reports: Other (See Below) Endocrine/Metabolic History: Reports: None Hematologic History: Reports: None Immunologic History: Reports: None Oncologic (Cancer) History: Reports: Brain, Liver, Lung, Metastatic Other Oncologic History: right lung cancer diagnosed in 2017 that has spread to brain and spine - Past Surgical History Other Oncologic Surgeries/Procedures: not going through any treatments - quit treatments in august Social & Family History - Family History Other Respiratory Family Hisory: Brother of lung CA Other Dermatologic Family History: "Maternal family all has cancer" - Caffeine Use Caffeine Use: Reports: None - Living Situation & Occupation Living situation: Reports: , with Spouse Occupation: Disabled Review of Systems - Review of Systems Review Of Systems: See Below Constitutional: Reports: No Symptoms Eyes: Reports: No Symptoms Ears: Reports: No Symptoms Nose: Reports: No Symptoms Mouth/Throat: Reports: No Symptoms Respiratory: Reports: No Symptoms. Denies: Hemoptysis Cardiovascular: Reports: No Symptoms GI/Abdominal: Reports: No Symptoms Genitourinary: Reports: No Symptoms Musculoskeletal: Reports: Leg Pain Skin: Reports: No Symptoms Neurological: Reports: No Symptoms ED EXAM, GENERAL - Physical Exam Exam: See Below Exam Limited By: No Limitations General Appearance: Alert, No Apparent Distress Head: Atraumatic, Normocephalic Neck: Normal Inspection, Supple, Non-Tender, Full Range of Motion Respiratory/Chest: No Respiratory Distress, Lungs Clear, No Accessory Muscle Use, Chest Non-Tender, Other (Initially she had some bibasilar crackles these cleared with deep breathing otherwise no abnormal breath sounds). No: Normal Breath Sounds, Respiratory Distress Cardiovascular: Regular Rate, Rhythm, No Edema, No Murmur GI/Abdominal: Normal Bowel Sounds, Soft, Non-Tender Back Exam: Normal Inspection Extremities: Leg Pain (She has some right mid thigh pain no obvious deformity), Other (No shortening or external rotation neurovascular status grossly intact) Neurological: Alert, Oriented, Normal Cognition Course - Vital Signs Last Recorded V/S: Last Vital Signs Temp 36.4 C 02/18/21 07:30 Pulse 99 02/18/21 07:30 Resp 20 02/18/21 07:30 BP 97/71 02/18/21 07:30 Pulse Ox 94 L 02/18/21 07:30 - Orders/Labs/Meds Orders: Active Orders 24 hr Category Date Time Status Consult to Case Management/Supervisor Vendor Quality [CONS] Cons 02/18/21 10:06 Active Routine UA RFX TRIP AND CULT IF INDIC [URIN] Stat Lab 02/18/21 10:01 Ordered Labs: Laboratory Tests 02/18/21 02/18/21 02/18/21 Range/Units 07:55 07:55 11:16 WBC 9.56 (3.98-10.04) K/mm3 RBC 3.35 L (3.98-5.22) M/mm3 Hgb 11.4 (11.2-15.7) gm/dl Hct 36.1 (34.1-44.9) % MCV 107.8 H (79.4-94.8) fl MCH 34.0 H (25.6-32.2) pg MCHC 31.6 L (32.2-35.5) g/dl RDW Std Deviation 65.5 H (36.4-46.3) fL Plt Count 180 L (182-369) K/mm3 MPV 10.4 (9.4-12.3) fl Neut % (Auto) 80.3 H (34.0-71.1) % Lymph % (Auto) 15.1 L (19.3-51.7) % [place] % (Auto) 3.8 L (4.7-12.5) % Eos % (Auto) 0 L (0.7-5.8) Baso % (Auto) 0.1 (0.1-1.2) % Neut # (Auto) 7.68 H (1.56-6.13) K/mm3 Lymph # (Auto) 1.44 (1.18-3.74) K/mm3 [place] # (Auto) 0.36 (0.24-0.36) K/mm3 Eos # (Auto) 0.00 L (0.04-0.36) K/mm3 Baso # (Auto) 0.01 (0.01-0.08) K/mm3 Sodium 144 (136-145) mEq/L Potassium 3.3 L (3.5-5.1) mEq/L Chloride 107 (98-107) mEq/L Carbon Dioxide 23 (21-32) mEq/L Anion Gap 17.3 H (5-15) BUN 16 (7-18) mg/dL Creatinine 0.5 L (0.55-1.02) mg/dL Est Cr Clr Drug Dosing TNP Estimated GFR (MDRD) > 60 (>60) mL/min BUN/Creatinine Ratio 32.0 H (14-18) Glucose 105 H (70-99) mg/dL Calcium 9.0 (8.5-10.1) mg/dL Total Bilirubin 0.9 (0.2-1.0) mg/dL AST 53 H (15-37) U/L ALT 41 (14-59) U/L Alkaline Phosphatase 346 H (46-116) U/L Total Protein 5.5 L (6.4-8.2) g/dl Albumin 2.3 L (3.4-5.0) g/dl Globulin 3.2 gm/dL Albumin/Globulin Ratio 0.7 L (1-2) SARS-CoV-2 RNA (ALEXANDRA) Negative (NEGATIVE) Meds: Medications Discontinued Medications Generic Name Dose Route Start Last Admin Trade Name Santy PRN Reason Stop Dose Admin Lactated Ringer's 1,000 mls @ 999 mls/hr 02/18/21 10:01 02/18/21 10:37 Ringers, Lactated IV 02/18/21 11:01 999 mls/hr .BOLUS ONE Administration Potassium Chloride 20 meq 02/18/21 12:41 Potassium Chloride 20 Meq Tab.Er PO 02/18/21 12:42 ONETIME ONE - Re-Assessments/Exams Free Text/Narrative Re-Assessment/Exam: 02/18/21 10:02 X-ray examination showed tumor involvement in the pelvis and proximal femur. Did discuss this with the patient and they were not aware of knowing the tumor in this area. I did discuss it with Dr. Garcia the patient's oncologist's to inform you back in August the patient decided not to pursue cancer treatment any longer. I did confirm this with the patient sure enough this is a situation when the patient was in [place] and got discharged short time ago they were trying to find mcfp placement for the patient but could not come up with anything. I have reviewed the situation with the patient and her the patient is a hospice candidate she would rather stay at home and think this is reasonable. We will have social work come and discuss the situation with the patient and see if she can facilitate further treatment the patient thinks a lot of her problems are related just to being weak this is probably why she fell and why she does not really feel like she can get up and walk she is can to try and eat something. I will give her some Tylenol just in case she has some discomfort and see if we can ambulate if she starts feeling better. 02/18/21 12:46 Patient was evaluated by social work, Kimber has discussed it with hospice but hospice cannot help until tomorrow. The patient's case was discussed with Dr. Graf, hospitalist patient will be placed in observation awaiting hospice to be put together. Departure - Departure Time of Disposition: 12:45 Disposition: Refer to Observation Clinical Impression: Failure to thrive, Metastatic cancer to bone, Metastatic cancer to brain - Discharge Information Referrals: PCP,None [Ordering Only Provider] - Forms: ED Department Discharge Sepsis Event Note (ED) - Focused Exam Vital Signs: Vital Signs Temp Pulse Resp BP Pulse Ox 02/18/21 07:30 36.4 C 99 20 97/71 94 L - My Orders Last 24 Hours: My Active Orders 02/18/21 10:01 UA RFX TRIP AND CULT IF INDIC [URIN] Stat 02/18/21 10:06 Consult to Case Management/Supervisor Vendor Quality [CONS] Routine - Assessment/Plan Last 24 Hours: My Active Orders 02/18/21 10:01 UA RFX TRIP AND CULT IF INDIC [URIN] Stat 02/18/21 10:06 Consult to Case Management/Supervisor Vendor Quality [CONS] Routine
--- NOTE | 2021-02-18 08:03 | CT ---
Head CT Technique: Multiple axial sections through the brain were obtained. Intravenous contrast was not utilized. Reconstructed coronal and sagittal images were obtained. Comparison: No prior intracranial imaging is available. Findings: Ventricles along with basal cisterns and sulci over the convexities are mildly prominent. Well-defined low density areas are seen within both basal ganglia which are due to prominent perivascular spaces or old lacunar infarcts. No other abnormal parenchymal densities are seen. No evidence of intracranial hemorrhage is seen. No midline shift or mass-effect is seen. Bone window settings were reviewed. Mucosal thickening is noted within both maxillary sinuses. Mild mucosal thickening is noted within the right mastoid sinus. No acute calvarial abnormality is seen. Impression: 1. Mucosal thickening within both maxillary sinuses. These are most likely due to chronic sinusitis. 2. Senescent change as noted above. 3. No acute intracranial abnormality is seen. Diagnostic code #2
--- NOTE | 2021-02-18 08:20 | CR ---
Right femur: AP and lateral views of the right femur were obtained. Comparison: No previous femur study is available. Sclerotic areas are seen within the proximal femur and within the adjacent pelvis. Bony structures are also osteopenic. Mild joint space narrowing is seen within the medial compartment of the knee. No acute fracture or other bony abnormality is appreciated. Impression: 1. Sclerotic areas within the proximal femur and adjacent pelvis. Findings are suspicious for possible metastatic disease. 2. Mild medial joint space narrowing within the knee. 3. No acute abnormality is otherwise appreciated. Diagnostic code #9
--- NOTE | 2021-02-18 08:20 | CR ---
Pelvis and right hip: AP view of the pelvis was obtained as well as frog-leg lateral view of the right hip. Comparison: No prior hip or pelvis imaging is available. Scattered sclerotic areas are seen within the pelvis as well as both proximal femurs. Joint spaces within both hips are maintained. Bony structures are also osteopenic. No fracture or other bony abnormality is appreciated. Impression: 1. Scattered sclerotic areas within the pelvis as well as proximal femurs which are suspicious for osseous metastatic disease. 2. Bony structures are otherwise osteopenic. No acute abnormality is otherwise appreciated. Diagnostic code #9
[2021-02-18] MEDS ORDERED: Lactated Ringers 1,000 ML IV ONE (10:01)
[2021-02-18] MEDS ORDERED: Potassium Chloride 20 MEQ Tab.ER PO ONE (12:41)
--- NOTE | 2021-02-18 13:31 | PCM.HP.2 ---
H&P History of Present Illness - General Date of Service: 02/18/21 Source of Information: Patient, Old Records, Provider, RN, RN Notes Reviewed, Significant Other History Limitations: Reports: No Limitations - History of Present Illness Initial Comments - Free Text/Narative: This is a 70-year-old female who presents to ED on 02/18/2021 via [facility] with right hip pain after a fall. Patient reportedly fell at approxim ately 9 PM last night. At that time her was able to help her get back into bed but since then she has become more weak and continues to have pain. Believes she may have hit her head but denies any other injury or pain. She does have a history of stage IV lung cancer which has metastasized to her liver and brain. She reports she uses [place] for pain on occasion. She was also recently diagnosed with a PE and is on Eliquis. She is taking dexamethasone as well due to her brain tumors. In the ED temp was 36.4 Celsius. Pulse 99. Respirations 20. Blood pressure 97/71. Pulse ox 94% on room air. She did complain of leg pain but there is no obvious rotation or shortening. Labs are obtained showing a WBC of 9.56. Hemoglobin 11.4. Platelet 180,000. Neutrophils are elevated 80.3%. Sodium is 144. Potassium is 3.3. Chloride 107. Carbon dioxide 23. Anion gap is 17.3. BUN is 16. Creatinine 0.5. GFR is greater than 60. Glucose is 105. Calcium 0.9. Bilirubin 0.9. AST is 53, ALT 41, alkaline phosphatase 346. Protein is 5.5. Albumin 2.3. SARS-CoV-[address] is obtained showing mucosal thickening within both maxillary sinuses which are most likely due to chronic sinusitis and senescent change but no acute abnormality is noted. Right hip and pelvis x-rays obtained showing scattered sclerotic areas within the pelvis as well as proximal femurs which are suspicious for osseous metastatic disease. Bony structures are otherwise osteopenic but no acute abnormality is appreciated. Right femur x-rays obtained showing sclerotic areas within the pro ximal femur and adjacent pelvis with findings suspicious for possible metastatic disease. There is mild medial joint space narrowing within the knee but no acute abnormalities otherwise appreciated. Dr. Garcia, the patient's oncologist is contacted by the ED provider who informs us that the patient stopped cancer treatment this past March. The patient was reportedly in the [facility] and they were trying to come up with mcfp placement but could not find anything. The patient now would like hospice care and to return home. family worker Kimber does begin the process for hospice admission however nothing will be able to be finished until tomorrow. Plan is to admit t he patient observation status with likely discharge tomorrow once hospice is arranged. She carries a history of HLD, endometriosis, polycystic ovarian disease, osteoarthritis, lung cancer with mets to her brain, liver, and bone. She is a former smoker. Her PCP is Dr. Mace. She wishes to be DNR/DNI/comfort care. - Related Data Allergies/Adverse Reactions: Allergies Allergy/AdvReac Type Severity Reaction Status Date / Time No Known Allergies Allergy Verified 02/18/21 08:43 Home Medications: Home Meds dexAMETHasone [Dexamethasone] 8 mg PO DAILY 01/31/21 [History] Apixaban [Eliquis] 5 mg PO DAILY 02/18/21 [History] Past Medical History HEENT History: Reports: Impaired Vision Cardiovascular History: Reports: High Cholesterol Respiratory History: Reports: PE, SOB Gastrointestinal History: Reports: None OFFLINE EDITOR History: Reports: Endometriosis, Other (See Below), Polycystic Ovaries Other OB/BYN History: hysterectomy Musculoskeletal History: Reports: Osteoarthritis Neurological History: Reports: Other (See Below) Endocrine/Metabolic History: Reports: None Hematologic History: Reports: None Immunologic History: Reports: None Oncologic (Cancer) History: Reports: Brain, Liver, Lung, Metastatic Other Oncologic History: right lung cancer diagnosed in 2017 that has spread to brain and spine - Past Surgical History HEENT Surgical History: Reports: Adenoidectomy, Tonsillectomy Respiratory Surgical History: Reports: Lung Biopsies GI Surgical History: Reports: Colonoscopy Other Oncologic Surgeries/Procedures: not going through any treatments - quit t reatments in august Social & Family History - Family History Family Medical History: No Pertinent Family History Other Respiratory Family Hisory: Brother of lung CA Other Dermatologic Family History: "Maternal family all has cancer" - Tobacco Use Tobacco Use Status *Q: Former Tobacco User Used Tobacco, but Quit: Yes Month/Year Tobacco Last Used: 03/1989 - Caffeine Use Caffeine Use: Reports: None - Recreational Drug Use Recreational Drug Use: No - Living Situation & Occupation Living situation: Reports: , with Spouse Occupation: Disabled H&P Review of Systems - Review of Systems: Review Of Systems: See Below General: Reports: Weakness. Denies: Fever, Chills, Malaise, Fatigue HEENT: Reports: No Symptoms. Denies: Headaches, Sore Throat Pulmonary: Reports: No Symptoms. Denies: Shortness of Breath, Wheezing, Pleuritic Chest Pain, Cough, Sputum Cardiovascular: Reports: Edema. Denies: Chest Pain, Palpitations, Dyspnea on Exertion Gastrointestinal: Reports: No Symptoms. Denies: Abdominal Pain, Constipation, Diarrhea, Nausea, Vomiting Genitourinary: Reports: No Symptoms. Denies: Pain Musculoskeletal: Reports: Back Pain, Leg Pain (right ), Joint Pain (right hip) Skin: Reports: No Symptoms. Denies: Cyanosis Psychiatric: Reports: No Symptoms. Denies: Confusion Neurological: Reports: No Symptoms, Difficulty Walking, Weakness, Gait Disturbance. Denies: Confusion, Dizziness, Headache, Numbness, Seizure, Syn cope, Tingling, Tremors, Trouble Speaking Hematologic/Lymphatic: Reports: No Symptoms Immunologic: Reports: No Symptoms Exam - Exam Exam: See Below - Vital Signs Vital Signs: Last Vital Signs Temp 97.5 F 02/18/21 07:30 Pulse 99 02/18/21 07:30 Resp 20 02/18/21 07:30 BP 97/71 02/18/21 07:30 Pulse Ox 94 L 02/18/21 07:30 - Exam Quality Assessment: No: Supplemental Oxygen, Urinary Catheter, DVT Prophylaxis (Contraindicated due to comfort care) General: Alert, Oriented, Cooperative, Mild Distress HEENT: Conjunctiva Clear, EACs Clear, Posterior Pharynx Clear. No: Mucosa Moist & [place] (Dry) Neck: Supple, Trachea Midline Lungs: Clear to Auscultation, Normal Respiratory Effort Cardiovascular: Regular Rate, Regular Rhythm GI/Abdominal Exam: Normal Bowel Sounds, Soft, Non-Tender, No Distention (Female) Exam: Deferred Rectal (Female) Exam: Deferred Back Exam: Normal Inspection, Full Range of Motion Extremities: Normal Inspection, Normal Range of Motion, Normal Capillary Refill, Pedal Edema (1+ on right trace on left), Leg Pain (Right hip pain) Skin: Warm, Dry, Intact Neurological: Cranial Nerves Intact (Grossly) Neuro Extensive - Mental Status: Alert, Oriented x3 - Patient Data Lab Results Last 24 hrs: Laboratory Results - last 24 hr 02/18/21 02/18/21 02/18/21 Range/Units 07:55 07:55 11:16 WBC 9.56 (3.98-10.04) K/mm3 RBC 3.35 L (3.98-5.22) M/mm3 Hgb 11.4 (11.2-15.7) gm/dl Hct 36.1 (34.1-44.9) % MCV 107.8 H (79.4-94.8) fl MCH 34.0 H (25.6-32.2) pg MCHC 31.6 L (32.2-35.5) g/dl RDW Std Deviation 65.5 H (36.4-46.3) fL Plt Count 180 L (182-369) K/mm3 MPV 10.4 (9.4-12.3) fl Neut % (Auto) 80.3 H (34.0-71.1) % Lymph % (Auto) 15.1 L (19.3-51.7) % [place] % (Auto) 3.8 L (4.7-12.5) % Eos % (Auto) 0 L (0.7-5.8) Baso % (Auto) 0.1 (0.1-1.2) % Neut # (Auto) 7.68 H (1.56-6.13) K/mm3 Lymph # (Auto) 1.44 (1.18-3.74) K/mm3 [place] # (Auto) 0.36 (0.24-0.36) K/mm3 Eos # (Auto) 0.00 L (0.04-0.36) K/mm3 Baso # (Auto) 0.01 (0.01-0.08) K/mm3 Sodium 144 (136-145) mEq/L Potassium 3.3 L (3.5-5.1) mEq/L Chloride 107 (98-107) mEq/L Carbon Dioxide 23 (21-32) mEq/L Anion Gap 17.3 H (5-15) BUN 16 (7-18) mg/dL Creatinine 0.5 L (0.55-1.02) mg/dL Est Cr Clr Drug Dosing TNP Estimated GFR (MDRD) > 60 (>60) mL/min BUN/Creatinine Ratio 32.0 H (14-18) Glucose 105 H (70-99) mg/dL Calcium 9.0 (8.5-10.1) mg/dL Total Bilirubin 0.9 (0.2-1.0) mg/dL AST 53 H (15-37) U/L ALT 41 (14-59) U/L Alkaline Phosphatase 346 H (46-116) U/L Total Protein 5.5 L (6.4-8.2) g/dl Albumin 2.3 L (3.4-5.0) g/dl Globulin 3.2 gm/dL Albumin/Globulin Ratio 0.7 L (1-2) SARS-CoV-2 RNA (ALEXANDRA) Negative (NEGATIVE) Result Diagrams: 02/18/21 07:55 02/18/21 07:55 Sepsis Event Note - Evaluation Sepsis Screening Result: No Definite Risk - Focused Exam Vital Signs: Vital Signs Temp Pulse Resp BP Pulse Ox 02/18/21 07:30 97.5 F 99 20 97/71 94 L - Problem List (1) End of life care SNOMED Code(s): 419647533, 854478834 ICD Code: Z51.5 - ENCOUNTER FOR PALLIATIVE CARE Status: Acute Current Visit: Yes (2) Hypokalemia SNOMED Code(s): 48971567 ICD Code: E87.6 - HYPOKALEMIA Status: Acute Priority: Medium Current Visit: Yes (3) Thrombocytopenia SNOMED Code(s): 163783284 ICD Code: D69.6 - THROMBOCYTOPENIA, UNSPECIFIED Status: Acute Priority: Low Current Visit: Yes (4) Generalized weakness SNOMED Code(s): 18531991 ICD Code: R53.1 - WEAKNESS Status: Acute Priority: High Current Visit: Yes (5) Frequent falls SNOMED Code(s): 758280017 ICD Code: R29.6 - REPEATED FALLS Status: Acute Priority: High Current Visit: Yes (6) Failure to thrive SNOMED Code(s): 70493871 ICD Code: [id number] - Status: Acute Priority: High Current Visit: Yes Qualifiers: Failure to thrive age range: in adult Qualified Code(s): R62.7 - Adult failure to thrive (7) Metastatic cancer to bone Status: Chronic Priority: High Current Visit: Yes (8) Metastatic cancer to brain Status: Chronic Priority: High Current Visit: Yes (9) Chronic pain due to malignant neoplastic disease SNOMED Code(s): 108995174 ICD Code: G89.3 - NEOPLASM RELATED PAIN (ACUTE) (CHRONIC) Status: Chronic Priority: High Current Visit: Yes (10) Primary cancer of right lung metastatic to other site SNOMED Code(s): 232754756, 513234268 ICD Code: C34.91 - MALIGNANT NEOPLASM OF UNSP PART OF RIGHT BRONCHUS OR LUNG Status: Chronic Priority: High Current Visit: Yes (11) Pulmonary embolism on right SNOMED Code(s): 55247252 ICD Code: I26.99 - OTHER PULMONARY EMBOLISM WITHOUT ACUTE COR PULMONALE Status: Chronic Priority: Medium Current Visit: Yes (12) Metastatic cancer to liver Status: Chronic Priority: High Current Visit: Yes (13) HLD (hyperlipidemia) SNOMED Code(s): 65127162 ICD Code: E78.5 - HYPERLIPIDEMIA, UNSPECIFIED Status: Chronic Priority: Low Current Visit: No Qualifiers: Hyperlipidemia type: unspecified Qualified Code(s): E78.5 - Hyperlipidemia, unspecified (14) Endometriosis SNOMED Code(s): 857866942 ICD Code: N80.9 - ENDOMETRIOSIS, UNSPECIFIED Status: Chronic Priority: Low Current Visit: No (15) PCOD (polycystic ovarian disease) SNOMED Code(s): 091322995 ICD Code: E28.2 - POLYCYSTIC OVARIAN SYNDROME Status: Chronic Priority: Low Current Visit: No (16) Osteoarthritis SNOMED Code(s): 824485666 ICD Code: M19.90 - UNSPECIFIED OSTEOARTHRITIS, UNSPECIFIED SITE Status: Chronic Priority: Medium Current Visit: Yes Qualifiers: Osteoarthritis location: unspecified site Osteoarthritis type: primary Qualified Code(s): M19.91 - Primary osteoarthritis, unspecified site (17) Former smoker SNOMED Code(s): 9475127 ICD Code: Z87.891 - PERSONAL HISTORY OF NICOTINE DEPENDENCE Status: Chronic Priority: Medium Current Visit: No Problem List Initiated/Reviewed/Updated: Yes Orders Last 24hrs: Active Orders 24 hr Category Date Time Status Consult to Case Management/Car Dealer [CONS] Cons 02/18/21 10:06 Active Routine UA RFX TRIP AND CULT IF INDIC [URIN] Stat Lab 12/02/21 10:01 Ordered Assessment/Plan Comment:: End of life care Generalized weakness Frequent falls Failure to thrive Metastatic cancer to bone Metastatic cancer to brain Chronic pain due to malignant neoplastic disease Primary cancer of right lung metastatic to other site Metastatic cancer to liver Osteoarthritis Former smoker * CM/SW consultation * Hospice consultation * Pain medications as ordered * Ativan for anxiety * Spiritual care consultation * Every shift vital signs * No further lab draws/treatment, no VTE prophylaxis, no telemetry * Bedrest with bedside commode * Continue home dexamethasone * Regular diet Pulmonary embolism on right * Patient wishes to continue on her Eliquis * Home Eliquis as ordered Inactive: Hypokalemia * Supplemented in ED Thrombocytopenia HLD (hyperlipidemia) Endometriosis PCOD (polycystic ovarian disease) Code status: DNR/DNI/Comfort care PCP: Dr. Mace VTE prophylaxis: Not indicated Social: Patient resides at home with her . She reports they have 12 steps to get into their house. Disposition: Patient admitted to the medical floor observation status due to generalized weakness and failure to thrive secondary to metastatic cancer. Patient is pursuing hospice care at this time and will be discharged once these arrangements are made. Length of stay likely 1 to 2 days. - Mortality Measure Prognosis:: Poor (Comfort care patient with hospice consult. Life expectancy less than 6 months.)
[2021-02-18] MEDS ORDERED: Acetaminophen 325 MG Tab PO PRN (13:32)
[2021-02-18] MEDS ORDERED: oxyCODONE 5 MG Tab PO PRN (13:32)
[2021-02-18] MEDS ORDERED: HYDROmorphone 0.5 MG/0.5 ML Syringe IVPUSH PRN (13:32)
[2021-02-18] MEDS ORDERED: Ondansetron 4 MG/2 ML SDV IVPUSH PRN (13:36)
[2021-02-18] MEDS ORDERED: LORazepam 1 MG Tab PO PRN (13:36)
[2021-02-18] MEDS: APIXABAN 5 MG PO SCH (21:12)
[2021-02-19] MEDS: APIXABAN 5 MG PO SCH (08:15)
[2021-02-19] MEDS ORDERED: Dexamethasone 4 MG Tab PO SCH (09:00)
[2021-02-19] MEDS ORDERED: APIXABAN 5 MG PO SCH (09:00)
[2021-02-19] MEDS ORDERED: Loperamide 2 MG Cap PO ONE (09:37)
--- NOTE | 2021-02-19 10:34 | PCM.DCSUM1 ---
Discharge Summary - Hospital Course HPI Initial Comments: This is a 70-year-old female who presents to ED on 02/18/2021 via [facility] with right hip pain after a fall. Patient reportedly fell at approximately 9 PM last night. At that time her was able to help her get back into bed but since then she has become more weak and continues to have pain. Believes she may have hit her head but denies any other injury or pain. She does have a history of stage IV lung cancer which has metastasized to her liver and brain. She reports she uses [place] for pain on occasion. She was also recently diagnosed with a PE and is on Eliquis. She is taking dexamethasone as well due to her brain tumors. In the ED temp was 36.4 Celsius. Pulse 99. Respirations 20. Blood pressure 97/71. Pulse ox 94% on room air. She did complain of leg pain but there is no obvious rotation or shortening. Labs are obtained showing a WBC of 9.56. Hemoglobin 11.4. Platelet 180,000. Neutrophils are elevated 80.3%. Sodium is 144. Potassium is 3.3. Chloride 107. Carbon dioxide 23. Anion gap is 17.3. BUN is 16. Creatinine 0.5. GFR is greater than 60. Glucose is 105. Calcium 0.9. Bilirubin 0.9. AST is 53, ALT 41, alkaline phosphatase 346. Protein is 5.5. Albumin 2.3. SARS-CoV-[address] is obtained showing mucosal thickening within both maxillary sinuses which are most likely due to chronic sinusitis and senescent change but no acute abnormality is noted. Right hip and pelvis x-rays obtained showing scattered sclerotic areas within the pelvis as well as proximal femurs which are suspicious for osseous metastatic disease. Bony structures are otherwise osteopenic but no acute abnormality is appreciated. Right femur x-rays obtained showing sclerotic areas within the proximal femur and adjacent pelvis with findings suspicious for possible metastatic disease. There is mild medial joint space narrowing within the knee but no acute abnormalities otherwise appreciated. Dr. Garcia, the patient's oncologist is contacted by the ED provider who informs us that the patient stopped cancer treatment this past August. The patient was reportedly in the [facility] and they were trying to come up with usp placement but could not find anything. The patient now would like hospice care and to return home. 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 Plan is to admit the patient observation status with likely discharge tomorrow once hospice is arranged. She carries a history of HLD, endometriosis, polycystic ovarian disease, osteoarthritis, lung cancer with mets to her brain, liver, and bone. She is a former smoker. Her PCP is Dr. Mace. She wishes to be DNR/DNI/comfort care. Diagnosis: Stroke: No - Discharge Data Discharge Date: 02/19/21 (Admit date: 02/18/2021) Discharge Disposition: DC/Tfer to Hospice - Home 51 Condition: Stable - Referral to Home Health Primary Care Physician: Laureano Mace MD - Discharge Diagnosis/Problem(s) (1) End of life care SNOMED Code(s): 527700481, 140683420 ICD Code: Z51.5 - ENCOUNTER FOR PALLIATIVE CARE Status: Acute Current Visit: Yes (2) Hypokalemia SNOMED Code(s): 41748171 ICD Code: E87.6 - HYPOKALEMIA Status: Acute Priority: Medium Current Visit: Yes (3) Thrombocytopenia SNOMED Code(s): 167343215 ICD Code: D69.6 - THROMBOCYTOPENIA, UNSPECIFIED Status: Acute Priority: Low Current Visit: Yes (4) Generalized weakness SNOMED Code(s): 76533588 ICD Code: R53.1 - WEAKNESS Status: Acute Priority: High Current Visit: Yes (5) Frequent falls SNOMED Code(s): 927294509 ICD Code: R29.6 - REPEATED FALLS Status: Acute Priority: High Current Visit: Yes (6) Failure to thrive SNOMED Code(s): 95685980 ICD Code: QDT5880 - Status: Acute Priority: High Current Visit: Yes Qualifiers: Failure to thrive age range: in adult Qualified Code(s): R62.7 - Adult failure to thrive (7) Metastatic cancer to bone Status: Chronic Priority: High Current Visit: Yes (8) Metastatic cancer to brain Status: Chronic Priority: High Current Visit: Yes (9) Chronic pain due to malignant neoplastic disease SNOMED Code(s): 750699468 ICD Code: G89.3 - NEOPLASM RELATED PAIN (ACUTE) (CHRONIC) Status: Chronic Priority: High Current Visit: Yes (10) Primary cancer of right lung metastatic to other site SNOMED Code(s): 414046937, 298261721 ICD Code: C34.91 - MALIGNANT NEOPLASM OF UNSP PART OF RIGHT BRONCHUS OR LUNG Status: Chronic Priority: High Current Visit: Yes (11) Pulmonary embolism on right SNOMED Code(s): 20623029 ICD Code: I26.99 - OTHER PULMONARY EMBOLISM WITHOUT ACUTE COR PULMONALE Status: Chronic Priority: Medium Current Visit: Yes (12) Metastatic cancer to liver Status: Chronic Priority: High Current Visit: Yes (13) HLD (hyperlipidemia) SNOMED Code(s): 63259857 ICD Code: E78.5 - HYPERLIPIDEMIA, UNSPECIFIED Status: Chronic Priority: Low Current Visit: No Qualifiers: Hyperlipidemia type: unspecified Qualified Code(s): E78.5 - Hyperlipidemia, unspecified (14) Endometriosis SNOMED Code(s): 963769103 ICD Code: N80.9 - ENDOMETRIOSIS, UNSPECIFIED Status: Chronic Priority: Low Current Visit: No (15) PCOD (polycystic ovarian disease) SNOMED Code(s): 306743324 ICD Code: E28.2 - POLYCYSTIC OVARIAN SYNDROME Status: Chronic Priority: Low Current Visit: No (16) Osteoarthritis SNOMED Code(s): 621224004 ICD Code: M19.90 - UNSPECIFIED OSTEOARTHRITIS, UNSPECIFIED SITE Status: Chronic Priority: Medium Current Visit: Yes Qualifiers: Osteoarthritis location: unspecified site Osteoarthritis type: primary Qualified Code(s): M19.91 - Primary osteoarthritis, unspecified site (17) Former smoker SNOMED Code(s): 5970920 ICD Code: Z87.891 - PERSONAL HISTORY OF NICOTINE DEPENDENCE Status: Chronic Priority: Medium Current Visit: No - Patient Summary/Data Consults: Consultations 02/18/21 10:06 Consult to Case Management/Brass Reclaimer [CONS] Routine 02/18/21 13:30 Consult to Hospice [CONS] Routine Consult to Spiritual Care [CONS] Routine Labs Pending at D/C: None Recommended Follow-up Testing/Procedures: Follow-up as needed for Comfort care/hospice Hospital Course: This is a 70-year-old female admitted to the floor observation status overnight while hospice care is set up. Patient does have a history of lung cancer which is now metastatic to her liver, brain, spine, and hips. She reportedly discontinued cancer treatment this past August. Patient has been very weak and having difficulty with ambulation. has been at bedside. Potassium was supplemented in the ED and patient was given a liter of IV fluid. Hospice is reportedly accepted the patient at 1300 today with a plan discharge of noon. Overall her pain has been controlled. She has reported some diarrhea and is receiving Imodium for this. She has been DNR/DNI/comfort measures. She will discharge back home today. She has been prescribed 1-2 tabs of 5 mg oxycodone as needed for pain. She is also been prescribed 1 mg Ativan as needed for anxiety and Imodium 2 mg as needed for diarrhea. Her home Eliquis and home dexamethasone have been continued at patient request. She was instructed to follow-up as needed for hospice care. Discharge back home today with planned hospice admission. - Patient Instructions Diet: Usual Diet as Tolerated Activity: As Tolerated Driving: Do Not Drive Showering/Bathing: May Shower Notify Provider of: Fever, Increased Pain, Nausea and/or Vomiting Other/Special Instructions: Follow-up as needed for hospice care - Discharge Plan *PRESCRIPTION DRUG MONITORING PROGRAM REVIEWED*: No *COPY OF PRESCRIPTION DRUG MONITORING REPORT IN PATIENT ILIANA: No Prescriptions/Med Rec: LORazepam [Ativan] 1 mg PO Q8H PRN #6 tablet PRN Reason: Anxiety Loperamide [Imodium] 2 mg PO Q4H PRN #12 cap PRN Reason: Diarrhea oxyCODONE 5 - 10 mg PO Q4H PRN #12 tablet PRN Reason: Pain (Moderate 4-6) Home Medications: Home Meds dexAMETHasone [Dexamethasone] 8 mg PO DAILY 01/31/21 [History] Apixaban [Eliquis] 5 mg PO BID 02/18/21 [History] LORazepam [Ativan] 1 mg PO Q8H PRN #6 tablet 02/19/21 [Rx] Loperamide [Imodium] 2 mg PO Q4H PRN #12 cap 02/19/21 [Rx] oxyCODONE 5 - 10 mg PO Q4H PRN #12 tablet 02/19/21 [Rx] Oxygen Therapy Mode: Room Air Forms: ED Department Discharge Referrals: Laureano Mace MD [Primary Care Provider] - (follow up with primary care provider as needed.) - Discharge Summary/Plan Comment DC Time >30 min.: No Total # of Minutes for Discharge Time: 29 - General Info Date of Service: 02/19/21 Admission Dx/Problem (Free Text: Weakness Functional Status: Reports: Pain Controlled, Tolerating Diet, Urinating. Denies: Ambulating, New Symptoms - Review of Systems General: Reports: Weakness, Fatigue, Malaise. Denies: Fever, Chills HEENT: Reports: No Symptoms. Denies: Headaches, Sore Throat Pulmonary: Reports: No Symptoms. Denies: Shortness of Breath, Cough, Sputum, Wheezing Cardiovascular: Reports: Edema. Denies: Chest Pain, Palpitations, Dyspnea on Exertion Gastrointestinal: Reports: Diarrhea. Denies: Abdominal Pain, Constipation, Nausea, Vomiting Genitourinary: Reports: No Symptoms. Denies: Pain Musculoskeletal: Reports: Leg Pain (right hip), Joint Pain (right hip) Skin: Reports: No Symptoms. Denies: Cyanosis Neurological: Reports: Difficulty Walking, Weakness, Gait Disturbance. Denies: Confusion, Headache, Numbness, Pre-Existing Deficit, Syncope, Tingling Psychiatric: Reports: No Symptoms - Patient Data Vitals - Most Recent: Last Vital Signs Temp 97.3 F 02/19/21 08:16 Pulse 100 02/19/21 08:16 Resp 24 H 02/19/21 08:16 BP 92/57 L 02/19/21 08:16 Pulse Ox 89 L 02/19/21 08:16 Weight - Most Recent: 133 lb 3.2 oz I&O - Last 24 hours: Intake & Output 02/18/21 02/19/21 02/19/21 22:59 06:59 14:59 Intake Total 1000 Balance 1000 Lab Results - Last 24 hrs: Laboratory Results - last 24 hr 02/18/21 02/18/21 02/18/21 Range/Units 07:55 07:55 11:16 WBC 9.56 (3.98-10.04) K/mm3 RBC 3.35 L (3.98-5.22) M/mm3 Hgb 11.4 (11.2-15.7) gm/dl Hct 36.1 (34.1-44.9) % MCV 107.8 H (79.4-94.8) fl MCH 34.0 H (25.6-32.2) pg MCHC 31.6 L (32.2-35.5) g/dl RDW Std Deviation 65.5 H (36.4-46.3) fL Plt Count 180 L (182-369) K/mm3 MPV 10.4 (9.4-12.3) fl Neut % (Auto) 80.3 H (34.0-71.1) % Lymph % (Auto) 15.1 L (19.3-51.7) % Pike % (Auto) 3.8 L (4.7-12.5) % Eos % (Auto) 0 L (0.7-5.8) Baso % (Auto) 0.1 (0.1-1.2) % Neut # (Auto) 7.68 H (1.56-6.13) K/mm3 Lymph # (Auto) 1.44 (1.18-3.74) K/mm3 [place]ike # (Auto) 0.36 (0.24-0.36) K/mm3 Eos # (Auto) 0.00 L (0.04-0.36) K/mm3 Baso # (Auto) 0.01 (0.01-0.08) K/mm3 Sodium 144 (136-145) mEq/L Potassium 3.3 L (3.5-5.1) mEq/L Chloride 107 (98-107) mEq/L Carbon Dioxide 23 (21-32) mEq/L Anion Gap 17.3 H (5-15) BUN 16 (7-18) mg/dL Creatinine 0.5 L (0.55-1.02) mg/dL Est Cr Clr Drug Dosing TNP Estimated GFR (MDRD) > 60 (>60) mL/min BUN/Creatinine Ratio 32.0 H (14-18) Glucose 105 H (70-99) mg/dL Calcium 9.0 (8.5-10.1) mg/dL Total Bilirubin 0.9 (0.2-1.0) mg/dL AST 53 H (15-37) U/L ALT 41 (14-59) U/L Alkaline Phosphatase 346 H (46-116) U/L Total Protein 5.5 L (6.4-8.2) g/dl Albumin 2.3 L (3.4-5.0) g/dl Globulin 3.2 gm/dL Albumin/Globulin Ratio 0.7 L (1-2) SARS-CoV-2 RNA (ALEXANDRA) Negative (NEGATIVE) Med Orders - Current: Current Medications Acetaminophen (Acetaminophen 325 Mg Tab) 650 mg PO Q4H PRN PRN Reason: Pain (Mild 1-3)/fever Apixaban (Apixaban 5 Mg Tab Patient's Own Med ) 5 mg PO BID [facility] Last Admin: 02/19/21 08:15 Dose: 5 mg Documented by: Dexamethasone (Dexamethasone 4 Mg Tab) 8 mg PO DAILY [facility] Last Admin: 02/19/21 08:15 Dose: 8 mg Documented by: Hydromorphone HCl (Hydromorphone 0.5 Mg/0.5 Ml Syringe) 0.25 mg IVPUSH Q2H PRN PRN Reason: Pain (severe 7-10) Loperamide HCl (Loperamide 2 Mg Cap) 2 mg PO Q4H PRN PRN Reason: Diarrhea Lorazepam (Lorazepam 1 Mg Tab) 1 mg PO Q8H PRN PRN Reason: Anxiety Ondansetron HCl (Ondansetron 4 Mg/2 Ml Sdv) 4 mg IVPUSH Q6H PRN PRN Reason: Nausea Oxycodone HCl (Oxycodone 5 Mg Tab) 10 mg PO Q4H PRN PRN Reason: Pain (moderate 4-6) Discontinued Medications Apixaban (Apixaban 5 Mg Tab Patient's Own Med ) 5 mg PO DAILY [facility] Lactated Ringer's (Ringers, Lactated) 1,000 mls @ 999 mls/hr IV .BOLUS ONE Stop: 02/18/21 11:01 Last Admin: 02/18/21 10:37 Dose: 999 mls/hr Documented by: Loperamide HCl (Loperamide 2 Mg Cap) 4 mg PO ONETIME ONE Stop: 02/19/21 09:38 Potassium Chloride (Potassium Chloride 20 Meq Tab.Er) 20 meq PO ONETIME ONE Stop: 02/18/21 12:42 Last Admin: 02/18/21 15:38 Dose: 20 meq Documented by: - Exam Quality Assessment: Denies: Supplemental Oxygen, Urine Catheter, DVT Prophylaxis General: Reports: Alert, Oriented, Cooperative, No Acute Distress HEENT: Reports: Pupils Equal, Pupils Reactive, Mucous Membr. Moist/[place] Neck: Reports: Supple, Trachea Midline Lungs: Reports: Clear to Auscultation, Normal Respiratory Effort Cardiovascular: Reports: Regular Rate, Regular Rhythm GI/Abdominal Exam: Normal Bowel Sounds, Soft, Non-Tender, No Distention (Female) Exam: Deferred Rectal (Female) Exam: Deferred Back Exam: Reports: Normal Inspection, Full Range of Motion Extremities: Normal Inspection, Normal Range of Motion, Non-Tender, Normal Capillary Refill, Pedal Edema (1+ right, trace left) Skin: Reports: Warm, Dry, Intact Neurological: Reports: No New Focal Deficit Psy/Mental Status: Reports: Alert, Normal Affect, Normal Mood *Q Meaningful Use (DIS) - VTE *Q VTE Pharmacological Contraindications *Q: Tx/Proc Refused by Pt
[2021-02-19] MEDS ORDERED: Loperamide 2 MG Cap PO PRN (13:30)
== END 2021-02-19 12:20 | disposition hospice, home (50) ==
LOC: JD.ED 07:20 → JD.MS 13:27
PROVIDERS: ADMIT Family Medicine; ATTEND Family Medicine
DX: M25.551 Pain in right hip (principal); G89.3 Neoplasm related pain (acute) (chronic); C34.91 Malignant neoplasm of unspecified part of right bronchus or lung; C79.51 Secondary malignant neoplasm of bone; I26.99 Other pulmonary embolism without acute cor pulmonale; C78.7 Secondary malignant neoplasm of liver and intrahepatic bile duct; C79.31 Secondary malignant neoplasm of brain; E87.6 Hypokalemia; D69.6 Thrombocytopenia, unspecified; E78.00 Pure hypercholesterolemia, unspecified; Z20.822 Contact with and (suspected) exposure to COVID-19; Z90.49 Acquired absence of other specified parts of digestive tract; Z79.899 Other long term (current) drug therapy; Z98.890 Other specified postprocedural states; Z87.891 Personal history of nicotine dependence; Z79.01 Long term (current) use of anticoagulants; W19.XXXA Unspecified fall, initial encounter
CPT/HCPCS: 36415; 70450; 73501; 73552; 80053; 85025; 87635; 99285; A9270; G0378; J1642; J7120; J8540; U0002